=== PATIENT | male | born 1960 | race Caucasian/White ===

== ENCOUNTER 2017-02-19 17:15 | Inpatient (IN) | payer OTHER ==
[~2017-02-19] VITALS: Ht 172.7 cm; Wt 90.7 kg
[2017-02-19] MEDS ORDERED: TRAZODONE PO (17:26)
[2017-02-19] MEDS ORDERED: RISPERDAL PO (17:26)
[2017-02-19] MEDS ORDERED: ABILIFY PO (17:26)
--- NOTE | 2017-02-19 17:27 | NUR ---
Received ALOX4 with pt stating that he does smoke and street drugs but hasn't had any for a few days. Pt is noted to have clara. LE ankle edema and blisters on both feet with very large blister noted on his lt. foot great toe medial aspect of foot. Pt is also noted to have abd distension as well, and states that he has an ingulnal hernia.
[2017-02-19 17:52] LABS: BASOPHILS # (AUTO) 0.1 K/uL (0.0-8.0); BASOPHILS % (AUTO) 0.9 % (0.0-2.0); EOSINOPHILS # (AUTO) 0.1 K/uL (0.0-0.7); HEMATOCRIT 40.3 % (40-50); HEMOGLOBIN 13.5 G/DL (14.0-18.0); LYMPHOCYTES # (AUTO) 1.1 K/UL (0.8-4.8); LYMPHOCYTES % (AUTO) 19.3 % (20.5-51.5); MEAN CORPUSCULAR HEMOGLOBIN 33.9 UUG (27.0-31.0); MEAN CORPUSCULAR HGB CONC 33 g/dL (32.0-37.0); MEAN CORPUSCULAR VOLUME 101.4 FL (82.0-92.0); MONOCYTES # (AUTO) 0.3 K/UL (0.1-1.30); MONOCYTES % (AUTO) 6.2 % (0.0-11.0); NEUTROPHILS % (AUTO) 71.6 % (38.5-71.5); PLATELET COUNT (AUTO) 120 K/UL (150-450); RED BLOOD CELL COUNT(AUTO) 3.97 MIL/UL (4.7-6.1); WHITE BLOOD COUNT (AUTO) 5.6 K/UL (4.0-11.2)
[2017-02-19 18:06] LABS: ETHANOL < 3 MG/DL (0-0)
[2017-02-19 18:10] LABS: CARBON DIOXIDE 25 mmol/L (21-32); CHLORIDE 106 mmol/L (98-107); CREATININE 0.8 mg/dL (0.6-1.3); GLUCOSE 118 mg/dL (74-106); POTASSIUM 3.6 mmol/L (3.5-5.1); UREA NITROGEN, BLOOD 16 mg/dL (7-18)
[2017-02-19 18:14] LABS: ACETAMINOPHEN < 2.0 ug/mL (10-30); ALANINE AMINOTRANSFERASE 88 U/L (16-63); ALKALINE PHOSPHATASE 133 U/L (50-136); ASPARTATE AMINOTRANSFERASE 86 U/L (15-37); BILIRUBIN,DIRECT 0.8 mg/dL (0.0-0.2); BILIRUBIN,TOTAL 1.9 mg/dL (0.2-1.0); TOTAL PROTEIN, SERUM 6.8 g/dL (6.4-8.2)
--- NOTE | 2017-02-19 19:04 | NUR ---
Pt given food to eat had meal tray and sandwich as well now c/o diarrhea.
[2017-02-19 19:22] LABS: *BLOOD, URINE NEGATIVE (NEGATIVE); *COLOR,URINE AMBER (YELLOW); *KETONES,URINE 1+ (NEGATIVE); *PROTEIN,URINE TRACE (NEGATIVE); LEUKOCYTE ESTERASE ,URINE NEGATIVE (NEGATIVE); NITRITE, URINE NEGATIVE (NEGATIVE); UGLUCOSE NEGATIVE (NEGATIVE)
[2017-02-19 19:39] LABS: *BILIRUBIN,URIN 2+ (NEGATIVE)
[2017-02-19 19:40] LABS: *CLARITY,URINE SLIGHTLY HAZY (CLEAR)
[2017-02-19 19:43] LABS: *AMPHETAMINE, URINE NEGATIVE (NEGATIVE); *BARBITURATE, URINE NEGATIVE (NEGATIVE); *CANNABINOID, URINE POSITIVE (NEGATIVE); *COCCAINE, URINE NEGATIVE (NEGATIVE); *OPIATE, URINE NEGATIVE (NEGATIVE); *PHENCYCLIDINE SCREEN,URINE NEGATIVE (NEGATIVE)
[2017-02-19 19:49] LABS: MUCUS,URINE MANY /LPF (0-FEW); SQUAMOUS EPITHELIAL CELL,UR FEW /HPF (NONE SEEN)
--- NOTE | 2017-02-19 19:58 | NUR ---
Pt. admitted to TELE, under care of Dr. Wells Belongs List completed
[2017-02-19 20:30] VITALS: BP 130/68
--- NOTE | 2017-02-19 20:30 | NUR ---
PT RECEIVED FROM ED, VIA [employer]. A/OX3. ORIENTED TO ROOM. ABLE TO MAKE NEEDS KNOWN. V/S STABLE. IN NO ACUTE DISTRESS. PT C/O OF GENERALIZED PAIN AND FOOT PAIN 12/28. WILL ADMIN PAIN MEDICATION ORDERED. 85 SINUS ON THE TELE MONITOR. ON RA, TOLERATING WELL. SAFETY MEASURES IMPLEMENTED. CALL LIGHT WITHIN REACH.
[2017-02-19] MEDS ORDERED: ALBUTEROL SULFATE 2.5 MG/3 ML NEBU NEB PRN (23:30)
[2017-02-19] MEDS ORDERED: ONDANSETRON 4 MG/2 ML VIAL IV PRN (23:30)
[2017-02-19] MEDS ORDERED: ENOXAPARIN SODIUM 40 MG/0.4 ML DISP.SYRIN SQ SCH (23:30)
[2017-02-19] MEDS ORDERED: MAGNESIUM HYDROXIDE 30 ML LIQUID UDC PO PRN (23:30)
[2017-02-19 23:50] VITALS: BP 134/60
[2017-02-19] MEDS ORDERED: ENOXAPARIN SODIUM 40 MG/0.4 ML DISP.SYRIN SQ ONE (23:54)
[2017-02-20] MEDS: HYDROMORPHONE 1 MG/1 ML DISP.SYRIN IV PRN ×3 (00:02→19:58)
[2017-02-20] MEDS: ZOLPIDEM 5 MG TABLET PO PRN ×2 (00:10→21:29)
[2017-02-20] MEDS ORDERED: HYDROMORPHONE 1 MG/1 ML DISP.SYRIN ONE ×2 (00:15→05:40)
[2017-02-20] MEDS ORDERED: ZOLPIDEM 5 MG TABLET ONE (00:24)
[2017-02-20] MEDS: LORAZEPAM 2 MG/1 ML VIAL IV PRN (02:54)
[2017-02-20] MEDS ORDERED: LORAZEPAM 2 MG/1 ML VIAL ONE (03:05)
[2017-02-20 04:50] VITALS: BP 101/55
[2017-02-20] MEDS ORDERED: PIPERACILLIN SODIUM/TAZO 3.375 GM VIAL ONE (05:09)
[2017-02-20] MEDS: PIPERACILLIN/TAZOBACTAM/D5W 3.375 G in PREMIXED 1 EACH IV SCH ×3 (05:33→22:18)
[2017-02-20] MEDS: PANTOPRAZOLE SODIUM 40 MG TABLET.DR PO SCH (06:14)
--- NOTE | 2017-02-20 06:15 | NUR ---
NON-ADMIN PROTONIX. PT IS A NEW ADMIT.
[2017-02-20 06:43] LABS: THYROID STIMULATING HORMONE 12.23 mIU/mL (0.358-3.740)
--- NOTE | 2017-02-20 06:50 | NUR ---
END OF SHIFT NOTES. PT SLEPT WELL THROUGHOUT SHIFT. IN STABLE CONDITION. PAIN MANAGED. PT C/O BEING UNABLE TO SETTLE DOWN AND FEELS RESTLESS. ATIVAN ADMIN ORDERED. PT REQUEST FOR PSYCH MEDS, STATES HE HEARS VOICES. WILL ENDORSE TO DAYSHIFT NURSE. IV ABX INFUSED. ALL NEEDS ATTENDED. SAFETY MAINTAINED. CALL LIGHT WITHIN REACH.
[2017-02-20 06:53] LABS: BASOPHILS % (AUTO) 0.7 % (0.0-2.0); EOSINOPHILS # (AUTO) 0.3 K/uL (0.0-0.7); HEMOGLOBIN 11.4 g/dL (12.5-16.3); LYMPHOCYTES # (AUTO) 1.9 K/uL (20.0-40.0); LYMPHOCYTES % (AUTO) 35.1 % (20.5-51.5); MEAN CORPUSCULAR HEMOGLOBIN 35.6 uug (23.8-33.4); MEAN CORPUSCULAR HGB CONC 35 g/dL (32.5-36.3); MEAN CORPUSCULAR VOLUME 102.5 fL (73.0-96.2); MONOCYTES # (AUTO) 0.6 K/uL (2.0-10.0); NEUTROPHILS # (AUTO) 2.5 K/uL (1.8-8.9); NEUTROPHILS % (AUTO) 46.2 % (38.5-71.5); PLATELET COUNT (AUTO) 111 K/uL (152-348); RED BLOOD CELL COUNT(AUTO) 3.22 MIL/uL (4.06-5.63); WHITE BLOOD COUNT (AUTO) 5.4 K/uL (3.6-10.2)
[2017-02-20 07:02] LABS: BILIRUBIN,TOTAL 0.9 mg/dL (0.2-1.0); CREATININE 0.8 mg/dL (0.6-1.3); MAGNESIUM 1.7 mg/dL (1.8-2.4); PHOSPHOROUS 3.9 mg/dL (2.5-4.9); POTASSIUM 3.8 mmol/L (3.5-5.1); TOTAL PROTEIN, SERUM 5.5 g/dL (6.4-8.2)
--- NOTE | 2017-02-20 07:30 | NUR ---
Received report from night shift supervisor nurse, patient in bed awake, no evidence of distress noted at this time. Bed in low position, side rails up x2, bed alarm on.
[2017-02-20] MEDS: VANCOMYCIN IV 1,250 MG in IV DEXTROSE 5% 500 ML IV SCH ×2 (09:00→19:11)
[2017-02-20] MEDS ORDERED: MAGNESIUM SULFATE/D5W 100 ML IV SCH ×2 (10:00→13:30)
[2017-02-20 10:43] VITALS: BP 102/58
--- NOTE | 2017-02-20 11:12 | NUR ---
Clinical Pharmacy Note: Vancomycin Pharmacy to Dose Subjective: To start vancomycin in this 56 y/o gentleman for indication of "documented infection" Objective: height 172 cm weight 90 kg BMI 30.4 BUN 18 Scr 0.8 Wbc 5.4 temp 98.4 Assessment/Plan Will start vancomycin 1250mg Q10hr for estimated trough of 14.94, first dose was given this am at 0900. Trough ordered before 4th scheduled dose ( due tomorrow at 1430). Will check trough at that time and adjust as needed. Will follow renal function as well and dose per level if to become unstable. Will follow
--- NOTE | 2017-02-20 11:30 | NUR ---
Patient became agitated and wants to go out for a cigarette. Patient was informed that this is a non-smoking hospital and that smoking is prohibited.
[2017-02-20 11:45] VITALS: BP 102/58
[2017-02-20] MEDS ORDERED: ASPIRIN EC 81 MG TABLET.DR PO SCH (12:15)
--- NOTE | 2017-02-20 12:24 | NUR ---
WOUND CARE CONSULT: PT PRESENTS WITH MULTIPLE BLISTERS ON FEET. PT HAS 3 TO 4+ EDEMA TO FEET WITH OPEN BLISTER ON LEFT ANTERIOR ANKLE, HUGE BLACK BLISTER ON LEFT MEDIAL FOOT AND DRY HEALED AREAS WITH CALLUSES TO FEET. PT STATES HE WALKED LONG DISTANCES IN HIS SOCKS PRIOR TO ADMISSION. RED RASH NOTED TO GROIN, PERINEAL AREAS. RECOMMENDATIONS MADE FOR RASH AND OPEN BLISTER. DISCUSSED WITH NURSING STAFF. RECOMMEND DPM CONSULT. WILL SEE PRN. IN AGREEMENT WITH PLAN OF CARE.
[2017-02-20] MEDS ORDERED: Z GUARD REMEDY PASTE 57 GM TUBE TOP PRN (12:30)
[2017-02-20] MEDS ORDERED: CLOTRIMAZOLE 1% CREAM 30 GM TUBE TOP SCH (12:30)
[2017-02-20] MEDS: NYSTATIN POWDER 15 GM BOTTLE TOP SCH ×2 (12:45→20:01)
[2017-02-20] MEDS: MULTIVITAMINS,THERAPEUTIC TABLET PO SCH (13:27)
[2017-02-20] MEDS: METOPROLOL TARTRATE 25 MG TABLET PO SCH ×2 (13:27→20:02)
[2017-02-20] MEDS: THIAMINE HCL 100 MG TABLET PO SCH (13:27)
[2017-02-20] MEDS: FOLIC ACID 1 MG TABLET PO SCH (13:27)
[2017-02-20 15:37] VITALS: BP 104/62
--- NOTE | 2017-02-20 18:30 | NUR ---
Patient has been cooperative with treatment, patient had one episode of loose bowel that he could not control and make to the restroom. No evidence of pain, SOB or distress at this time. Patient is in bed, bed in low position, side rails up x2.
--- NOTE | 2017-02-20 19:30 | NUR ---
Received patient laying comfortably in bed. No acute distress noted. A&O x4. Patient c/o pain 8/10 on the right foot. Will review meds, will give meds as ordered. IV access on the right fore arm # 20 patent and intact. IV Abx infusing at the moment. Noted redness in the groin area noted. Blisters on bilateral feet noted. 3+ - 4+ pitting edema noted. Open blister on the left ant. ankle noted. Huge black blister on the Left medial foot and dry healed areas with callus to feet noted. Safety initiated. Call light within reach. Patient was instructed to use the call light when in need of assistance. Verbalized understanding. Will continue to monitor.
[2017-02-20 20:00] VITALS: BP 118/65
[2017-02-20] MEDS: DOCUSATE SODIUM 250 MG CAPSULE PO SCH (20:02)
[2017-02-20] MEDS: ENOXAPARIN SODIUM 40 MG/0.4 ML DISP.SYRIN SQ SCH ×2 (20:04→20:55)
--- NOTE | 2017-02-20 20:56 | NUR ---
Held Lovenox because platelet is low 111. Will continue to monitor.
[2017-02-20] MEDS: ACETAMINOPHEN 325 MG TABLET PO PRN (21:31)
[2017-02-21] MEDS: VANCOMYCIN IV 1,250 MG in IV DEXTROSE 5% 500 ML IV SCH ×2 (04:35→15:41)
[2017-02-21 05:57] VITALS: BP 101/47
[2017-02-21] MEDS: LEVOTHYROXINE SODIUM 25 MCG TABLET PO SCH (06:05)
[2017-02-21] MEDS: PIPERACILLIN/TAZOBACTAM/D5W 3.375 G in PREMIXED 1 EACH IV SCH ×3 (06:05→23:54)
[2017-02-21] MEDS: PANTOPRAZOLE SODIUM 40 MG TABLET.DR PO SCH (06:05)
--- NOTE | 2017-02-21 06:13 | NUR ---
Patient slept on and off t/o shift. No acute Distress noted. C/O back pain 11/27. Meds given, stated relief. Patient sating well in room air. Vital Signs stable. IV Cite on the right FA patent and intact. Blisters on bilateral legs open to air and kept clean and dry. All meds given as ordered. All needs met. Safety and comfort measures maintained t/o shift.
[2017-02-21 06:47] LABS: BASOPHILS % (AUTO) 0.5 % (0.0-2.0); EOSINOPHILS # (AUTO) 0.4 K/uL (0.0-0.7); HEMATOCRIT 33.5 % (40-50); HEMOGLOBIN 11.6 G/DL (14.0-18.0); LYMPHOCYTES # (AUTO) 1.4 K/UL (0.8-4.8); LYMPHOCYTES % (AUTO) 29.8 % (20.5-51.5); MEAN CORPUSCULAR HEMOGLOBIN 35.6 UUG (27.0-31.0); MEAN CORPUSCULAR HGB CONC 35 g/dL (32.0-37.0); MEAN CORPUSCULAR VOLUME 103.3 FL (82.0-92.0); MONOCYTES # (AUTO) 0.6 K/UL (0.1-1.30); MONOCYTES % (AUTO) 12.3 % (0.0-11.0); NEUTROPHILS # (AUTO) 2.2 K/UL (1.8-8.9); NEUTROPHILS % (AUTO) 48.4 % (38.5-71.5); PLATELET COUNT (AUTO) 100 K/UL (150-450); RED BLOOD CELL COUNT(AUTO) 3.24 MIL/UL (4.7-6.1); WHITE BLOOD COUNT (AUTO) 4.6 K/UL (4.0-11.2)
[2017-02-21 06:53] LABS: CREATININE 0.9 mg/dL (0.6-1.3); MAGNESIUM 1.7 mg/dL (1.8-2.4); PHOSPHOROUS 3.5 mg/dL (2.5-4.9); POTASSIUM 4.1 mmol/L (3.5-5.1); TOTAL PROTEIN, SERUM 5.4 g/dL (6.4-8.2)
--- NOTE | 2017-02-21 07:30 | NUR ---
RECEIVED REPORT FROM CASUALTY INSURANCE CLAIM ADJUSTER NURSE, PATIENT IN BED AWAKE COMPLAINING OF PAIN. BED IN LOW POSITION, SIDE RAILS UP X2.
[2017-02-21] MEDS: HYDROCODONE/APAP 5-325MG TABLET PO PRN ×3 (07:36→20:02)
[2017-02-21] MEDS: NYSTATIN POWDER 15 GM BOTTLE TOP SCH ×2 (09:00→20:03)
[2017-02-21] MEDS: CLOTRIMAZOLE 1% CREAM 30 GM TUBE TOP SCH (09:00)
[2017-02-21] MEDS: METOPROLOL TARTRATE 25 MG TABLET PO SCH ×2 (09:00→20:02)
[2017-02-21] MEDS: FOLIC ACID 1 MG TABLET PO SCH (10:14)
[2017-02-21] MEDS: MULTIVITAMINS,THERAPEUTIC TABLET PO SCH (10:14)
[2017-02-21] MEDS: THIAMINE HCL 100 MG TABLET PO SCH (10:14)
[2017-02-21] MEDS ORDERED: MAGNESIUM SULFATE/D5W 100 ML IV SCH (10:15)
[2017-02-21] MEDS: NICOTINE 14 MG/24HR PATCH TD SCH (11:34)
[2017-02-21 11:41] VITALS: BP 108/51
[2017-02-21] MEDS: CHOLECALCIFEROL 1,000 UNIT TABLET PO SCH (13:40)
--- NOTE | 2017-02-21 15:14 | NUR ---
Clinical Pharmacy Note: Vancomycin Pharmacy to Dose Subjective: To continue vancomycin in this 56 y/o gentleman for RLL pna Objective: height 172 cm weight 90 kg BMI 30.4 BUN 13 Scr 0.9 Wbc 4.6 temp 98.7 vanco trough level: 8.8 Assessment/Plan Since vanco trough level is sub-therapeutic, will change dose from vancomycin 1250mg Q10hr to vancomycin 1250mg IVPB q8h for estimated trough of 15, first dose is due today at 1600. Trough ordered before 4th scheduled dose ( not yet ordered). Will check trough at that time and adjust as needed. Will follow renal function as well and dose per level if to become unstable. Will follow
[2017-02-21 15:16] VITALS: BP 113/68
[2017-02-21] MEDS ORDERED: VANCOMYCIN IV 1,500 MG in IV DEXTROSE 5% 500 ML IV SCH (16:00)
--- NOTE | 2017-02-21 18:10 | NUR ---
CONTACTED DENNY BECAUSE PATIENTS ABDOMEN IS SWOLLEN, FEET HAVE PITTING EDEMA AND SCROTUM IS ENLARGED AND FIRM. MEDICATIONS AND LAB'S ORDERED.
--- NOTE | 2017-02-21 18:34 | NUR ---
ALL NEEDS MET, BED IN LOW POSITION, SIDE RAILS UP X2.
[2017-02-21] MEDS: SPIRONOLACTONE 100 MG TABLET PO SCH (18:44)
--- NOTE | 2017-02-21 19:30 | NUR ---
Received patient laying comfortably in bed. No acute distress noted. A&Ox4. On room air. IV Access on the Left AC patent and intact. Abdominal distended. Noted scrotal redness and slightly enlarged. Noted multiple kirlex dressings on bilateral legs due to open blisters. Patient uses a urinal to urinate. BM today. Noted edema on bilateral ankles. Safety initiated. Call light within reach. Will continue to monitor.
[2017-02-21] MEDS: LACTOBACILLUS RHAMNOSUS GG 1 EACH CAPSULE PO SCH (20:01)
[2017-02-21] MEDS: DOCUSATE SODIUM 250 MG CAPSULE PO SCH (20:02)
[2017-02-21] MEDS: ENOXAPARIN SODIUM 40 MG/0.4 ML DISP.SYRIN SQ SCH (20:04)
--- NOTE | 2017-02-21 20:05 | NUR ---
LOW LEVELS OF PLATELETS. HELD LOVENOX. WILL CONTINUE TO MONITOR.
[2017-02-21 20:17] VITALS: BP 114/55
[2017-02-22] MEDS: ACETAMINOPHEN 325 MG TABLET PO PRN (01:12)
[2017-02-22] MEDS: ZOLPIDEM 5 MG TABLET PO PRN ×2 (01:12→21:53)
[2017-02-22] MEDS: VANCOMYCIN IV 1,250 MG in IV DEXTROSE 5% 500 ML IV SCH ×2 (01:21→08:43)
--- NOTE | 2017-02-22 05:49 | NUR ---
Patient slept intermittently t/o shift. No acute distress noted. No changes t/o shift. Vital signs stable. Patient says he hears voices and that is what preventing him from sleeping. pending Psych eval. Safety and comfort measures maintained t/o shift. BMx2. Urinating ok. Very good appetite, asks for sandwich, crackers and juice t/o shift. All meds given as ordered. All needs met.
[2017-02-22] MEDS: LEVOTHYROXINE SODIUM 25 MCG TABLET PO SCH (06:23)
[2017-02-22] MEDS: HYDROCODONE/APAP 5-325MG TABLET PO PRN ×2 (06:23→14:23)
[2017-02-22] MEDS: PANTOPRAZOLE SODIUM 40 MG TABLET.DR PO SCH (06:23)
[2017-02-22] MEDS: PIPERACILLIN/TAZOBACTAM/D5W 3.375 G in PREMIXED 1 EACH IV SCH (06:23)
[2017-02-22 07:06] VITALS: BP 115/62
[2017-02-22 08:29] LABS: BILIRUBIN,TOTAL 0.8 mg/dL (0.2-1.0); CREATININE 0.8 mg/dL (0.6-1.3); MAGNESIUM 1.8 mg/dL (1.8-2.4); PHOSPHOROUS 3.1 mg/dL (2.5-4.9); POTASSIUM 4.3 mmol/L (3.5-5.1); TOTAL PROTEIN, SERUM 5.9 g/dL (6.4-8.2)
[2017-02-22] MEDS: NICOTINE 14 MG/24HR PATCH TD SCH (08:38)
[2017-02-22] MEDS: MULTIVITAMINS,THERAPEUTIC TABLET PO SCH (08:40)
[2017-02-22] MEDS: THIAMINE HCL 100 MG TABLET PO SCH (08:40)
[2017-02-22] MEDS: SPIRONOLACTONE 100 MG TABLET PO SCH (08:40)
[2017-02-22] MEDS: LACTOBACILLUS RHAMNOSUS GG 1 EACH CAPSULE PO SCH ×2 (08:40→21:34)
[2017-02-22] MEDS: CHOLECALCIFEROL 1,000 UNIT TABLET PO SCH (08:40)
[2017-02-22] MEDS: FOLIC ACID 1 MG TABLET PO SCH (08:40)
[2017-02-22 08:41] LABS: BASOPHILS % (AUTO) 0.5 % (0.0-2.0); EOSINOPHILS # (AUTO) 0.2 K/uL (0.0-0.7); EOSINOPHILS % (AUTO) 6.2 % (0.0-7.0); HEMATOCRIT 34.4 % (36.7-47.1); HEMOGLOBIN 11.8 g/dL (12.5-16.3); LYMPHOCYTES # (AUTO) 0.8 K/uL (20.0-40.0); LYMPHOCYTES % (AUTO) 20.1 % (20.5-51.5); MEAN CORPUSCULAR HEMOGLOBIN 35.3 uug (23.8-33.4); MEAN CORPUSCULAR HGB CONC 34 g/dL (32.5-36.3); MEAN CORPUSCULAR VOLUME 102.5 fL (73.0-96.2); MONOCYTES # (AUTO) 0.5 K/uL (2.0-10.0); MONOCYTES % (AUTO) 13.6 % (0.0-11.0); NEUTROPHILS # (AUTO) 2.4 K/uL (1.8-8.9); NEUTROPHILS % (AUTO) 59.6 % (38.5-71.5); PLATELET COUNT (AUTO) 88 K/uL (152-348); RED BLOOD CELL COUNT(AUTO) 3.35 MIL/uL (4.06-5.63); WHITE BLOOD COUNT (AUTO) 3.9 K/uL (3.6-10.2)
[2017-02-22] MEDS: METOPROLOL TARTRATE 25 MG TABLET PO SCH ×2 (09:26→21:35)
[2017-02-22] MEDS: CLOTRIMAZOLE 1% CREAM 30 GM TUBE TOP SCH (09:27)
[2017-02-22] MEDS: NYSTATIN POWDER 15 GM BOTTLE TOP SCH ×2 (09:27→21:57)
--- NOTE | 2017-02-22 10:20 | NUR ---
Pt report received near bedside. Board updated. Pt assessed, no c/o pain or SOB. Wound care provided and pictures taken to update Pt folder. Pt compliant with PO and IV medications. V/S and labs WNL. Pt seen my SCHOOL CHILDCARE ATTENDANT. Pt NPO r/t awaiting abd u/s. Call light within reach. Will continue to monitor.
[2017-02-22] MEDS: FUROSEMIDE 20 MG/2 ML VIAL IV SCH ×2 (10:45→23:20)
[2017-02-22 11:59] VITALS: BP 127/74
[2017-02-22 12:01] LABS: BASOPHILS % (MANUAL) 1 % (0-2); EOSINOPHILS % (MANUAL) 10 % (0-8); LYMPHOCYTES % (MANUAL) 23 % (20-40); MONOCYTES % (MANUAL) 6 % (2-10); NEUTROPHILS % (MANUAL) 60 % (42-75)
[2017-02-22] MEDS: RIFAXIMIN 550 MG TABLET PO SCH ×2 (14:10→21:34)
[2017-02-22] MEDS: AZITHROMYCIN IV 500 MG in IV DEXTROSE 5% 250 ML IV SCH (14:10)
[2017-02-22 15:43] VITALS: BP 132/77
--- NOTE | 2017-02-22 19:30 | NUR ---
RECEIVED SHIFT REPORT FROM PREVIOUS SHIFT NURSE. PATIENT IS A/OX3, STABLE CONDITION, NO SIGNS/SYMPTOMS OF DISTRESS. PATIENT REQUESTED FOR BILATERAL FEET TO BE REWRAPPED, WILL CARE FOR. PAIN COMPLAINS OF PAIN 5/10 ON PAIN SCALE AT BILATERAL FEET. PATIENT VERBALIZES THAT PAIN IS TOLERABLE AND PAIN MEDICATION IS NOT NEEDED. BED IS IN LOCKED/LOW POSITION WITH SIDE RAILS UP X2, CALL LIGHT WITHIN REACH. SAFETY AND COMFORT WILL BE PROVIDED THROUGHOUT SHIFT.
[2017-02-22 20:00] VITALS: BP 141/65
[2017-02-22] MEDS ORDERED: risperiDONE 0.5 MG TABLET PO SCH (21:00)
[2017-02-22] MEDS: DOCUSATE SODIUM 250 MG CAPSULE PO SCH (21:39)
[2017-02-22] MEDS ORDERED: risperiDONE 2 MG TABLET ONE (22:21)
[2017-02-23] MEDS: LEVOTHYROXINE SODIUM 25 MCG TABLET PO SCH (05:56)
[2017-02-23] MEDS: PANTOPRAZOLE SODIUM 40 MG TABLET.DR PO SCH (05:57)
[2017-02-23 06:25] LABS: BASOPHILS % (AUTO) 0.4 % (0.0-2.0); EOSINOPHILS # (AUTO) 0.2 K/uL (0.0-0.7); EOSINOPHILS % (AUTO) 4.8 % (0.0-7.0); HEMATOCRIT 36.6 % (40-50); HEMOGLOBIN 12.5 G/DL (14.0-18.0); LYMPHOCYTES # (AUTO) 1.1 K/UL (0.8-4.8); LYMPHOCYTES % (AUTO) 31.4 % (20.5-51.5); MEAN CORPUSCULAR HEMOGLOBIN 35.2 UUG (27.0-31.0); MEAN CORPUSCULAR HGB CONC 34 g/dL (32.0-37.0); MEAN CORPUSCULAR VOLUME 102.8 FL (82.0-92.0); MONOCYTES # (AUTO) 0.4 K/UL (0.1-1.30); MONOCYTES % (AUTO) 11.1 % (0.0-11.0); NEUTROPHILS % (AUTO) 52.3 % (38.5-71.5); PLATELET COUNT (AUTO) 88 K/UL (150-450); RED BLOOD CELL COUNT(AUTO) 3.56 MIL/UL (4.7-6.1); WHITE BLOOD COUNT (AUTO) 3.7 K/UL (4.0-11.2)
--- NOTE | 2017-02-23 06:35 | NUR ---
PATIENT SLEPT INTERMITTENTLY THROUGH THE NIGHT. PATIENT IN STABLE CONDITION, NO S/S OF DISTRESS. AMBIEN WAS REQUESTED BY PATIENT EARLY ON SHIFT, WAS ADMINISTERED, AND APPEARED TO HAVE BEEN EFFECTIVE. BED IN LOCKED/LOW POSITION W/ SIDE RAILS UP X2, CALL LIGHT WITHIN REACH. COMFORT AND SAFETY WILL CONTINUE TO BE PROVIDED UNTIL SHIFT HAS COMPLETED.
[2017-02-23 06:46] VITALS: BP 125/65
[2017-02-23 06:51] LABS: BILIRUBIN,TOTAL 1.1 mg/dL (0.2-1.0); CREATININE 0.8 mg/dL (0.6-1.3); PHOSPHOROUS 3.8 mg/dL (2.5-4.9); POTASSIUM 4.4 mmol/L (3.5-5.1)
[2017-02-23 06:52] LABS: MAGNESIUM 1.8 mg/dL (1.8-2.4); TOTAL PROTEIN, SERUM 6.3 g/dL (6.4-8.2)
[2017-02-23] MEDS: FUROSEMIDE 20 MG/2 ML VIAL IV SCH ×2 (08:09→20:27)
[2017-02-23] MEDS: FOLIC ACID 1 MG TABLET PO SCH (08:11)
[2017-02-23] MEDS: THIAMINE HCL 100 MG TABLET PO SCH (08:11)
[2017-02-23] MEDS: BENZTROPINE MESYLATE 0.5 MG TABLET PO SCH ×2 (08:12→20:24)
[2017-02-23] MEDS: LACTOBACILLUS RHAMNOSUS GG 1 EACH CAPSULE PO SCH ×2 (08:12→20:23)
[2017-02-23] MEDS: risperiDONE 2 MG TABLET PO SCH ×2 (08:12→20:24)
[2017-02-23] MEDS: RIFAXIMIN 550 MG TABLET PO SCH ×2 (08:12→20:23)
[2017-02-23] MEDS: MULTIVITAMINS,THERAPEUTIC TABLET PO SCH (08:12)
[2017-02-23] MEDS: HYDROCODONE/APAP 5-325MG TABLET PO PRN ×2 (08:12→19:52)
[2017-02-23] MEDS: NICOTINE 14 MG/24HR PATCH TD SCH (08:13)
[2017-02-23] MEDS: METOPROLOL TARTRATE 25 MG TABLET PO SCH ×2 (08:13→20:24)
[2017-02-23] MEDS: CHOLECALCIFEROL 1,000 UNIT TABLET PO SCH (08:13)
[2017-02-23] MEDS: CLOTRIMAZOLE 1% CREAM 30 GM TUBE TOP SCH (08:14)
[2017-02-23] MEDS: NYSTATIN POWDER 15 GM BOTTLE TOP SCH ×2 (08:14→20:25)
--- NOTE | 2017-02-23 08:15 | NUR ---
Received patient awake alert x4. With patent LFA G20, flushed and secured. Not in any from of distress. With pain over back and lower extremities rated as 8/10. PRN [place] given
[2017-02-23 12:01] VITALS: BP 114/47
[2017-02-23] MEDS: AZITHROMYCIN IV 500 MG in IV DEXTROSE 5% 250 ML IV SCH (13:16)
[2017-02-23 15:32] VITALS: BP 112/58
--- NOTE | 2017-02-23 16:15 | NUR ---
Paracentesis ongoing at bedside. Patient tolerating well.
--- NOTE | 2017-02-23 16:53 | NUR ---
Paracentesis completed. Drained 6,000 ML total. Patient stable no dizziness, chest pains or SOB noted. With tolerable discomfort over site. No active bleeding from site noted. V/S BP- 104/71. HR- 72. Informed Grace Caparos/ [employer] and ordered culture for peritoneal drainage.
[2017-02-23 20:00] VITALS: BP 105/68
--- NOTE | 2017-02-23 20:00 | NUR ---
RECEIVED PATIENT AWAKE IN BED. C/O PAIN IN LOWER BACK AND BILATERAL FEET. PATIENT GIVEN NORCO 1 TAB PO PRN FOR PAIN. VSS. NO RESP. DISTRESS NOTED. CALL LIGHT IN REACH. ALL NEEDS ATTENDED. WILL CONTINUE TO MONITOR.
[2017-02-23] MEDS: TRAZODONE 100 MG TABLET PO SCH (20:24)
[2017-02-23] MEDS: DOCUSATE SODIUM 250 MG CAPSULE PO SCH (20:24)
[2017-02-24] MEDS: HYDROCODONE/APAP 5-325MG TABLET PO PRN ×3 (00:37→18:23)
[2017-02-24 05:17] VITALS: BP 112/56
[2017-02-24] MEDS: PANTOPRAZOLE SODIUM 40 MG TABLET.DR PO SCH (06:01)
[2017-02-24] MEDS: LEVOTHYROXINE SODIUM 25 MCG TABLET PO SCH (06:01)
--- NOTE | 2017-02-24 06:26 | NUR ---
PATIENT AWAKE IN BED. NO C/O PAIN. VSS. CALL LIGHT IN REACH. ALL NEEDS ATTENDED.
[2017-02-24 07:05] LABS: BILIRUBIN,TOTAL 0.8 mg/dL (0.2-1.0); CREATININE 0.9 mg/dL (0.6-1.3); MAGNESIUM 1.7 mg/dL (1.8-2.4); PHOSPHOROUS 4.2 mg/dL (2.5-4.9); POTASSIUM 4.4 mmol/L (3.5-5.1); TOTAL PROTEIN, SERUM 6.8 g/dL (6.4-8.2)
[2017-02-24 07:25] LABS: BASOPHILS % (AUTO) 0.5 % (0.0-2.0); EOSINOPHILS # (AUTO) 0.1 K/uL (0.0-0.7); EOSINOPHILS % (AUTO) 3.2 % (0.0-7.0); HEMATOCRIT 37.3 % (36.7-47.1); HEMOGLOBIN 12.8 g/dL (12.5-16.3); LYMPHOCYTES % (AUTO) 29.4 % (20.5-51.5); MEAN CORPUSCULAR HEMOGLOBIN 35.5 uug (23.8-33.4); MEAN CORPUSCULAR HGB CONC 34 g/dL (32.5-36.3); MEAN CORPUSCULAR VOLUME 103.6 fL (73.0-96.2); MONOCYTES # (AUTO) 0.4 K/uL (2.0-10.0); MONOCYTES % (AUTO) 12.7 % (0.0-11.0); NEUTROPHILS # (AUTO) 1.8 K/uL (1.8-8.9); NEUTROPHILS % (AUTO) 54.2 % (38.5-71.5); PLATELET COUNT (AUTO) 75 K/uL (152-348); WHITE BLOOD COUNT (AUTO) 3.3 K/uL (3.6-10.2)
--- NOTE | 2017-02-24 08:00 | NUR ---
Pt is in no acute distress. Discussed plan of care for today re: proper pain management, fall precaution. PT agreeable with plan of care. Pt denies any c/o pain. Pt ambulates around hallway with good balance. Call light is within reach.
[2017-02-24] MEDS: FUROSEMIDE 20 MG/2 ML VIAL IV SCH ×2 (08:04→20:11)
[2017-02-24] MEDS: MULTIVITAMINS,THERAPEUTIC TABLET PO SCH (08:05)
[2017-02-24] MEDS: RIFAXIMIN 550 MG TABLET PO SCH ×2 (08:05→20:09)
[2017-02-24] MEDS: FOLIC ACID 1 MG TABLET PO SCH (08:05)
[2017-02-24] MEDS: risperiDONE 2 MG TABLET PO SCH ×2 (08:05→20:10)
[2017-02-24] MEDS: LACTOBACILLUS RHAMNOSUS GG 1 EACH CAPSULE PO SCH ×2 (08:05→20:10)
[2017-02-24] MEDS: THIAMINE HCL 100 MG TABLET PO SCH (08:05)
[2017-02-24] MEDS: BENZTROPINE MESYLATE 0.5 MG TABLET PO SCH ×2 (08:07→20:10)
[2017-02-24] MEDS: METOPROLOL TARTRATE 25 MG TABLET PO SCH ×2 (08:08→20:11)
[2017-02-24] MEDS: CHOLECALCIFEROL 1,000 UNIT TABLET PO SCH (08:09)
[2017-02-24] MEDS: NICOTINE 14 MG/24HR PATCH TD SCH (08:09)
[2017-02-24] MEDS: NYSTATIN POWDER 15 GM BOTTLE TOP SCH ×2 (08:10→20:14)
[2017-02-24] MEDS: CLOTRIMAZOLE 1% CREAM 30 GM TUBE TOP SCH (08:10)
[2017-02-24 12:09] VITALS: BP 106/58
[2017-02-24] MEDS: AZITHROMYCIN IV 500 MG in IV DEXTROSE 5% 250 ML IV SCH (13:35)
[2017-02-24] MEDS: MAGNESIUM SULFATE/D5W 100 ML IV SCH ×2 (15:17→16:32)
[2017-02-24 15:34] VITALS: BP 127/69
--- NOTE | 2017-02-24 17:41 | NUR ---
Plan of care effective. No fall noted this shift. Call light is within reach.
[2017-02-24 20:00] VITALS: BP 118/73
[2017-02-24] MEDS: LORAZEPAM 2 MG/1 ML VIAL IV PRN (20:06)
[2017-02-24] MEDS: DOCUSATE SODIUM 250 MG CAPSULE PO SCH (20:13)
[2017-02-24] MEDS: TRAZODONE 100 MG TABLET PO SCH (21:00)
--- NOTE | 2017-02-24 21:00 | NUR ---
PATIENT WALKING AROUND THE [place] WANTED TO SMOKE DOWNSTAIRS. REMINDED ABOUT NO SMOKING POLICY, WAS ABLE TO LISTEN AND IS COOPERATIVE. ADMITS HEARING VOICES BUT DENIES SUICIDAL IDEATION. GIVEN PRN ATIVAN FOR AGITATION. VITAL SIGNS ARE STABLE. NOTED BLISTERS ON LEFT FOOT WITH BILATERAL LEG EDEMA AND SWOLLEN SCROTUM. ASCITES PRESENT BUT NO RESPIRATORY DISTRESS NOTED. NICOTINE PATCH OVER LEFT ARM. CALL LIGHT WITHIN REACH.
[2017-02-25 05:00] VITALS: BP 119/65
[2017-02-25] MEDS: LEVOTHYROXINE SODIUM 25 MCG TABLET PO SCH (06:40)
[2017-02-25] MEDS: PANTOPRAZOLE SODIUM 40 MG TABLET.DR PO SCH (06:40)
--- NOTE | 2017-02-25 06:40 | NUR ---
slept good thru the night. held trazodone dose last night. otherwise patient has no complaint, not in distress. vital signs are stable.call light within reach. all needs attended.
[2017-02-25 06:43] LABS: CREATININE 0.8 mg/dL (0.6-1.3); MAGNESIUM 1.8 mg/dL (1.8-2.4); POTASSIUM 4.1 mmol/L (3.5-5.1)
--- NOTE | 2017-02-25 07:15 | NUR ---
RECEIVED REPORT FROM MARKETING ADMINISTRATOR NURSE. PATIENT IN BED AWAKE, NO EVIDENCE OF DISTRESS NOTED, BED IN LOW POSITION, SIDE RAILS UP X2.
[2017-02-25] MEDS: FUROSEMIDE 20 MG/2 ML VIAL IV SCH (08:27)
[2017-02-25] MEDS: risperiDONE 2 MG TABLET PO SCH (08:27)
[2017-02-25] MEDS: LACTOBACILLUS RHAMNOSUS GG 1 EACH CAPSULE PO SCH (08:27)
[2017-02-25] MEDS: RIFAXIMIN 550 MG TABLET PO SCH (08:27)
[2017-02-25] MEDS: CHOLECALCIFEROL 1,000 UNIT TABLET PO SCH (08:27)
[2017-02-25] MEDS: MULTIVITAMINS,THERAPEUTIC TABLET PO SCH (08:27)
[2017-02-25] MEDS: BENZTROPINE MESYLATE 0.5 MG TABLET PO SCH (08:28)
[2017-02-25] MEDS: NICOTINE 14 MG/24HR PATCH TD SCH (08:28)
[2017-02-25] MEDS: FOLIC ACID 1 MG TABLET PO SCH (08:28)
[2017-02-25] MEDS: THIAMINE HCL 100 MG TABLET PO SCH (08:28)
[2017-02-25] MEDS: METOPROLOL TARTRATE 25 MG TABLET PO SCH (08:29)
[2017-02-25] MEDS: CLOTRIMAZOLE 1% CREAM 30 GM TUBE TOP SCH (08:32)
[2017-02-25] MEDS: NYSTATIN POWDER 15 GM BOTTLE TOP SCH (08:32)
[2017-02-25 11:15] VITALS: BP 95/45
[2017-02-25] MEDS: AZITHROMYCIN IV 500 MG in IV DEXTROSE 5% 250 ML IV SCH (13:59)
--- NOTE | 2017-02-25 15:00 | NUR ---
PATIENT WAS OFFERED SEVERAL OPTIONS FOR ASSISTANCE, AND PATIENT DECLINED.
[2017-02-25 15:09] VITALS: BP 115/58
--- NOTE | 2017-02-25 17:20 | NUR ---
PATIENTS IV WAS DISCONTINUED, ALL DISCHARGE INFORMATION WAS PROVIDED, PATIENT WAS PROVIDED A BUS TOKEN AND SHOES THE PATIENT DID NOT HAVE ANY. ALL PRESCRIPTIONS WERE CALLED IN TO [facility] ON [facility].
== END 2017-02-25 17:35 | disposition home or self-care (01) | DRG 177 ==
LOC: ER 17:15 → MED 19:59 → TELE 21:06 → MED 02-20 13:15
PROVIDERS: ADMIT Internal Medicine; ATTEND Internal Medicine
PROC: 0W9G3ZZ Drainage of Peritoneal Cavity, Percutaneous Approach (ICD-10-PCS; principal; 2017-02-23)
DX: J15.6 Pneumonia due to other Gram-negative bacteria (principal); E43 Unspecified severe protein-calorie malnutrition; D68.9 Coagulation defect, unspecified; D69.6 Thrombocytopenia, unspecified; J90 Pleural effusion, not elsewhere classified; I42.1 Obstructive hypertrophic cardiomyopathy; E83.42 Hypomagnesemia; L03.116 Cellulitis of left lower limb; L03.115 Cellulitis of right lower limb; E88.09 Other disorders of plasma-protein metabolism, not elsewhere classified; F25.9 Schizoaffective disorder, unspecified; K72.90 Hepatic failure, unspecified without coma; E83.51 Hypocalcemia; K70.31 Alcoholic cirrhosis of liver with ascites; D53.9 Nutritional anemia, unspecified; E03.9 Hypothyroidism, unspecified; F17.210 Nicotine dependence, cigarettes, uncomplicated; F41.9 Anxiety disorder, unspecified; Z59.0 Homelessness; Z87.01 Personal history of pneumonia (recurrent); Z91.5 Personal history of self-harm; R53.1 Weakness; K80.20 Calculus of gallbladder without cholecystitis without obstruction; D72.819 Decreased white blood cell count, unspecified; F10.10 Alcohol abuse, uncomplicated; Y90.0 Blood alcohol level of less than 20 mg/100 ml; S90.822A Blister (nonthermal), left foot, initial encounter; S90.821A Blister (nonthermal), right foot, initial encounter; X58.XXXA Exposure to other specified factors, initial encounter; Y93.9 Activity, unspecified; Y92.9 Unspecified place or not applicable; L30.9 Dermatitis, unspecified; Z86.19 Personal history of other infectious and parasitic diseases; R74.0 Nonspecific elevation of levels of transaminase and lactic acid dehydrogenase [LDH]; S90.32XA Contusion of left foot, initial encounter; F19.10 Other psychoactive substance abuse, uncomplicated; F32.9 Major depressive disorder, single episode, unspecified; I10 Essential (primary) hypertension; Z68.30 Body mass index [BMI] 30.0-30.9, adult
CPT/HCPCS: 36415; 70030-TC; 71010; 76700; 80307; 82306; 83550; 83605; 83735; 84100; 84443; 85025; 85730; 87040; 87070; 87086; 87205; 93005; 93307; A4663; G0480; G0480-TC; J0456; J1170; J1650; J1940; J2060; J2543; J3370; J3475; J7030; J7040; J7060

== ENCOUNTER 2018-07-04 17:30 | Inpatient (IN) | payer MEDICAID, OTHER ==
[~2018-07-04] VITALS: Ht 167.6 cm; Wt 85.7 kg
[~2018-07-04 17:30] MED LIST: ABILIFY PO; RISPERDAL PO; TRAZODONE PO
[2018-07-04] MEDS ORDERED: IV NORMAL SALINE 1000 ML BAG IV ONE (18:00)
--- NOTE | 2018-07-04 18:30 | NUR ---
PT IS IN ROOM #2B. DR BINGHAM EVALUATED THE PT.
[2018-07-04 18:39] LABS: *BLOOD, URINE NEGATIVE (NEGATIVE); *CLARITY,URINE SLIGHTLY CLOUDY (CLEAR); *COLOR,URINE DARK YELLOW (YELLOW); *KETONES,URINE TRACE (NEGATIVE); LEUKOCYTE ESTERASE ,URINE 1+ (NEGATIVE); NITRITE, URINE POSITIVE (NEGATIVE); PH,URINE 5.5 (5.0-8.0); UGLUCOSE NEGATIVE (NEGATIVE)
[2018-07-04 18:44] LABS: *BILIRUBIN,URIN 2+ (NEGATIVE); BASOPHILS % (AUTO) 0.5 % (0.0-2.0); EOSINOPHILS % (AUTO) 0.4 % (0.0-7.0); HEMATOCRIT 28.4 % (36.7-47.1); HEMOGLOBIN 9.7 g/dL (12.5-16.3); LYMPHOCYTES # (AUTO) 1.1 K/uL (20.0-40.0); LYMPHOCYTES % (AUTO) 17.9 % (20.5-51.5); MEAN CORPUSCULAR HEMOGLOBIN 32.2 uug (23.8-33.4); MEAN CORPUSCULAR HGB CONC 34 g/dL (32.5-36.3); MEAN CORPUSCULAR VOLUME 94.5 fL (73.0-96.2); MONOCYTES % (AUTO) 17.1 % (0.0-11.0); NEUTROPHILS # (AUTO) 3.9 K/uL (1.8-8.9); NEUTROPHILS % (AUTO) 64.1 % (38.5-71.5); PLATELET COUNT (AUTO) 85 K/uL (152-348); RED BLOOD CELL COUNT(AUTO) 3.01 MIL/uL (4.06-5.63); WHITE BLOOD COUNT (AUTO) 6.1 K/uL (3.6-10.2)
[2018-07-04] MEDS ORDERED: VANCOMYCIN IV 1,000 MG in IV DEXTROSE 5% 250 ML IV ONE (18:45)
[2018-07-04] MEDS ORDERED: PIPERACILLIN SODIUM/TAZOBACTAM 3.375 G in IV DEXTROSE 5% 50 ML IV ONE (18:45)
[2018-07-04 18:54] LABS: CARBON DIOXIDE 25 mmol/L (21-32); CHLORIDE 109 mmol/L (98-107); CREATININE 0.9 mg/dL (0.6-1.3); GLUCOSE 67 mg/dL (74-106); POTASSIUM 3.3 mmol/L (3.5-5.1); UREA NITROGEN, BLOOD 20 mg/dL (7-18)
[2018-07-04 18:56] LABS: BACTERIA,URINE MANY /HPF (NONE SEEN); RBC,URINE 0-3 /HPF (0-3); SQUAMOUS EPITHELIAL CELL,UR FEW /HPF (NONE SEEN); WBC,URINE 20-50 /HPF (0-3)
[2018-07-04 19:01] LABS: ETHANOL < 3 MG/DL (0-0)
[2018-07-04 19:02] LABS: *AMPHETAMINE, URINE POSITIVE (NEGATIVE); *BARBITURATE, URINE NEGATIVE (NEGATIVE); *CANNABINOID, URINE POSITIVE (NEGATIVE); *COCCAINE, URINE NEGATIVE (NEGATIVE); *OPIATE, URINE NEGATIVE (NEGATIVE); *PHENCYCLIDINE SCREEN,URINE NEGATIVE (NEGATIVE)
[2018-07-04 19:07] LABS: THYROID STIMULATING HORMONE 4.011 mIU/mL (0.358-3.740)
[2018-07-04 19:08] LABS: ALANINE AMINOTRANSFERASE 80 U/L (16-63); ALKALINE PHOSPHATASE 97 U/L (50-136); ASPARTATE AMINOTRANSFERASE 88 U/L (15-37); BAND % (MANUAL) 10 % (0-10); BILIRUBIN,DIRECT 0.9 mg/dL (0.0-0.2); BILIRUBIN,TOTAL 2.3 mg/dL (0.2-1.0); NEUTROPHILS % (MANUAL) 64 % (42-75); TOTAL PROTEIN, SERUM 5.7 g/dL (6.4-8.2)
[2018-07-04 19:09] LABS: LYMPHOCYTES % (MANUAL) 10 % (20-40); MONOCYTES % (MANUAL) 16 % (2-10)
[2018-07-04 19:11] LABS: ACETAMINOPHEN < 2.0 ug/mL (10-30)
[2018-07-04] MEDS ORDERED: THIAMINE HCL 200 MG/2 ML VIAL IV ONE (19:15)
[2018-07-04] MEDS ORDERED: FOLIC ACID 5 MG/ML VIAL IV ONE ×2 (19:15→19:55)
[2018-07-04] MEDS ORDERED: DEXTROSE 50% 50 ML DISP.SYRIN IV ONE (19:15)
[2018-07-04] MEDS ORDERED: IV D5W-0.45% NS 1000 ML BAG IV ONE (19:15)
--- NOTE | 2018-07-04 19:30 | NUR ---
Pt. back from CT, IV patent - no s/s infiltration/phlebitis, reconnected IV fluids - fluids infusing,
[2018-07-04] MEDS ORDERED: DEXTROSE 50% 50 ML DISP.SYRIN ONE (19:54)
[2018-07-04] MEDS ORDERED: THIAMINE HCL 200 MG/2 ML VIAL ONE (19:54)
[2018-07-04] MEDS ORDERED: PIPERACILLIN SODIUM/TAZO 3.375 GM VIAL ONE (19:54)
--- NOTE | 2018-07-04 20:21 | NUR ---
US tech. at bedside for scan
[2018-07-04] MEDS ORDERED: VANCOMYCIN IV 200 ML ONE (20:27)
[2018-07-04] MEDS ORDERED: LACTULOSE 20 G/30 ML LIQUID UDC PO ONE (21:15)
--- NOTE | 2018-07-04 21:21 | NUR ---
Rad. tech at bedside for xray, phleb. tech at bedside for blood draw,
[2018-07-04] MEDS ORDERED: LACTULOSE 20 G/30 ML LIQUID UDC ONE (21:35)
--- NOTE | 2018-07-04 21:43 | NUR ---
Gave report to Celena,
--- NOTE | 2018-07-04 22:26 | NUR ---
Pt. taken off unit via stretcher by RN and LIBRARIAN HEAD, IV abx. to be continued upon admission, TYLOR,
[2018-07-04] MEDS ORDERED: ACETAMINOPHEN 650 MG SUPP.RECT RC PRN (22:30)
[2018-07-04] MEDS ORDERED: DEXTROSE 50% 50 ML DISP.SYRIN IV PRN (22:30)
[2018-07-04] MEDS ORDERED: BLOOD SUGAR DIAGNOSTIC 1 EACH STRIP VI ONE (22:30)
[2018-07-04] MEDS ORDERED: LACTULOSE 20 G/30 ML LIQUID UDC PR ONE (22:30)
--- NOTE | 2018-07-04 22:45 | NUR ---
Received patient from ER via [employer]. Patient was placed in the bed. Oriented to his room. A/O to self only. Unable to comprehend my questions. Unable to give history because of mental status. Patient is mal odorous. Patient is in room air. Vitals were taken, stable. TELE SR at 85. Patient has multiple wounds in the upper and lower extremities. Sacral redness. Patient has 1 working IV on the Right AC because he pulled out the IV on the left FA. Holloway cath draining yellow and clear urine. Testicles are red and enlarged. Patient is currently trying to pull out the holloway. Safety initiated. Call light within reach. Will continue to monitor.
[2018-07-04 23:04] VITALS: BP 127/72
[2018-07-04] MEDS ORDERED: LORAZEPAM 2 MG/1 ML VIAL IV PRN (23:15)
--- NOTE | 2018-07-04 23:15 | NUR ---
Spoke to HCP, explained that the patient is pulling lines out. HCP ordered mittens and Ativan 1 mg IVP for restlessness and anxiousness. Will closely monitor.
[2018-07-04] MEDS: IV D5LR 1,000 ML IV PRN (23:37)
[2018-07-04] MEDS: LORAZEPAM 2 MG/1 ML VIAL IV PRN (23:43)
[2018-07-05 00:23] VITALS: BP 120/72
[2018-07-05 05:19] VITALS: BP 129/78
[2018-07-05] MEDS ORDERED: MEROPENEM 1 G VIAL IV ONE (05:43)
--- NOTE | 2018-07-05 05:45 | NUR ---
No changes t/o shift. Neuro checks every 15 mins because of mittens are in place. IV on the right ac patent and intact. TELE SR at 76. Vital signs stable. Wound care provided. Tolerated it ok. Patient maintained NPO status. Safety and comfort measures maintained t/o shift. All meds given as ordered. All needs met.
[2018-07-05] MEDS: MEROPENEM 1 G in IV NORMAL SALINE 100 ML IV SCH ×2 (06:03→15:02)
[2018-07-05] MEDS: BLOOD SUGAR DIAGNOSTIC 1 EACH STRIP VI SCH ×4 (06:34→21:14)
[2018-07-05 06:43] LABS: BASOPHILS # (AUTO) 0.1 K/uL (0.0-8.0); BASOPHILS % (AUTO) 1.3 % (0.0-2.0); EOSINOPHILS # (AUTO) 0.1 K/uL (0.0-0.7); EOSINOPHILS % (AUTO) 1.2 % (0.0-7.0); HEMATOCRIT 29.7 % (36.7-47.1); LYMPHOCYTES # (AUTO) 1.1 K/uL (20.0-40.0); LYMPHOCYTES % (AUTO) 20.2 % (20.5-51.5); MEAN CORPUSCULAR HEMOGLOBIN 32.7 uug (23.8-33.4); MEAN CORPUSCULAR HGB CONC 34 g/dL (32.5-36.3); MEAN CORPUSCULAR VOLUME 96.9 fL (73.0-96.2); MONOCYTES # (AUTO) 0.7 K/uL (2.0-10.0); MONOCYTES % (AUTO) 13.4 % (0.0-11.0); NEUTROPHILS # (AUTO) 3.5 K/uL (1.8-8.9); NEUTROPHILS % (AUTO) 63.9 % (38.5-71.5); PLATELET COUNT (AUTO) 68 K/uL (152-348); RED BLOOD CELL COUNT(AUTO) 3.06 MIL/uL (4.06-5.63); WHITE BLOOD COUNT (AUTO) 5.5 K/uL (3.6-10.2)
[2018-07-05 07:25] LABS: BILIRUBIN,TOTAL 1.9 mg/dL (0.2-1.0); CREATININE 0.8 mg/dL (0.6-1.3); MAGNESIUM 1.7 mg/dL (1.8-2.4); PHOSPHOROUS 3.5 mg/dL (2.5-4.9); POTASSIUM 3.3 mmol/L (3.5-5.1); TOTAL PROTEIN, SERUM 5.5 g/dL (6.4-8.2)
[2018-07-05] MEDS: VANCOMYCIN IV 1,500 MG in IV DEXTROSE 5% 500 ML IV SCH ×2 (09:59→23:32)
[2018-07-05] MEDS: PANTOPRAZOLE SODIUM 40 MG VIAL IV SCH (10:00)
[2018-07-05 11:10] VITALS: BP 129/60
--- NOTE | 2018-07-05 12:04 | NUR ---
Clinical Pharmacy Note: Vancomycin Dosing per Pharmacy Subjective: Vancomycin IV to start on this 59 yo male patient for empiric "cellulitis, UTI" Objective: BUN 20/Scr 0.8 WBC 5.5 Temperature 97 ht 167.6 cm wt 84.8 kg Assessment/Plan: Patient received vanco 1gm IVPB x1 in ED on 07/04 at 1830. Will start vancomycin 1500mg IVPB Q26hr for a predicted vancomycin steady state trough level of 15 mcg/ml. 1st dose today at 900. Will draw a vancomycin trough level prior to the 4th dose of vancomycin (not ordered yet). Will monitor renal function and adjust vancomycin dose, if needed, should renal function change significantly. Will follow daily.
--- NOTE | 2018-07-05 12:30 | NUR ---
Patient BS 76, and given orange juice two containers, and two jellos. He is able to tolerate. David Gardner RN
[2018-07-05] MEDS: INSULIN REGULAR, HUMAN 300 UNIT/3 ML VIAL SQ PRN ×2 (13:50→17:01)
[2018-07-05] MEDS: MAGNESIUM SULFATE/D5W 100 ML IV SCH ×2 (15:02→16:21)
[2018-07-05] MEDS: POTASSIUM CHLORIDE 50 ML IV SCH ×3 (15:03→20:00)
[2018-07-05 15:31] VITALS: BP 132/68
--- NOTE | 2018-07-05 15:40 | NUR ---
WOUND CARE CONSULT: PT PRESENTS WITH MULTIPLE SKIN ISSUES INCLUDING EDEMA WITH REDNESS TO BILATERAL LOWER EXTREMITIES, ESPECIALLY RT LEG INCLUDING THIGH, DRY ABRASIONS, WOUNDS TO RT FOOT, ESCHAR TO RT POSTERIOR HEEL, INCONTINENCE ASSOCIATED SKIN DAMAGE TO BUTTOCKS, INNER THIGHS, PRESENT ON ADMISSION. SCROTAL EDEMA NOTED. ABDOMEN IS VERY LARGE. RECOMMEND DPM CONSULT. ALL SKIN PROTECTION RECOMMENDATIONS DISCUSSED WITH NURSING STAFF. DEFER TO DPM FOR LOWER EXTREMITY ISSUES. WILL SEE PRN. CABRERA IN AGREEMENT WITH PLAN OF CARE. Addendum: 07/05/18 at 1543 by DEIDRE DICKSON RN Amended: Links added.
--- NOTE | 2018-07-05 17:30 | NUR ---
BS low 70s, see emar for result, and I did give patient 3 orange juices. He is able to tolerate when given slowly. David Gardner RN
--- NOTE | 2018-07-05 19:30 | NUR ---
Received pt with no IV access. Per Day Shift RN, pt to get total 4 bags of KCL for K+ level 3.3. RN stated 2 bags already given on day shift, #3 bag only half bag infused and will need to infuse the rest; he handed me #4 bag also to be given. Pt in bed, somewhat restless, lethargic, barely opens eyes and barely verbally responsive. Has garbled speech, moves all extremities. Strong body odor noted. Nursing care provided with comfort measures. Able to establish 2 IV access at both upper extremities and IV therapies resumed. Safety and fall precautions observed at all times.
[2018-07-05 19:55] VITALS: BP 130/76
[2018-07-05] MEDS: FOLIC ACID 1 MG in IV DEXTROSE 5% 50 ML IV SCH (20:31)
[2018-07-05] MEDS: THIAMINE HCL INJ 100 MG in IV DEXTROSE 5% 50 ML IV SCH (20:32)
[2018-07-05] MEDS: CEFTRIAXONE 1 G in IV DEXTROSE 5% 50 ML IV SCH (21:07)
[2018-07-05] MEDS: IV D5LR 1,000 ML IV PRN (22:56)
[2018-07-05] MEDS: LORAZEPAM 2 MG/1 ML VIAL IV PRN (23:53)
--- NOTE | 2018-07-06 00:01 | NUR ---
Required IV Ativan 1 mg for increasing restlessness, with immediate relief. Closely monitored. Safety measures maintained.
[2018-07-06] MEDS: Z GUARD REMEDY PASTE 57 GM TUBE TOP PRN ×2 (02:00→15:54)
--- NOTE | 2018-07-06 02:30 | NUR ---
Total bath/skin and wound care rendered, total linen change done. Incontinent of stools, smear amount and thus unable to collect sample for occult blood.
[2018-07-06 05:38] VITALS: BP 128/76
--- NOTE | 2018-07-06 05:56 | NUR ---
Continues to sleep. Stable night. Fall and safety precautions maintained. Required only one dose of IV Ativan this shift. Speech remains garbled. When asked of his name, pt mentions many different names. HOB up at all times. Circ checks adequate with mittens.
[2018-07-06 06:46] LABS: BASOPHILS % (AUTO) 0.8 % (0.0-2.0); EOSINOPHILS # (AUTO) 0.1 K/uL (0.0-0.7); EOSINOPHILS % (AUTO) 2.2 % (0.0-7.0); HEMATOCRIT 30.2 % (36.7-47.1); HEMOGLOBIN 10.2 g/dL (12.5-16.3); LYMPHOCYTES # (AUTO) 0.8 K/uL (20.0-40.0); LYMPHOCYTES % (AUTO) 17.1 % (20.5-51.5); MEAN CORPUSCULAR HEMOGLOBIN 32.4 uug (23.8-33.4); MEAN CORPUSCULAR HGB CONC 34 g/dL (32.5-36.3); MEAN CORPUSCULAR VOLUME 95.8 fL (73.0-96.2); MONOCYTES # (AUTO) 0.6 K/uL (2.0-10.0); MONOCYTES % (AUTO) 12.9 % (0.0-11.0); NEUTROPHILS # (AUTO) 3.2 K/uL (1.8-8.9); PLATELET COUNT (AUTO) 61 K/uL (152-348); RED BLOOD CELL COUNT(AUTO) 3.15 MIL/uL (4.06-5.63); WHITE BLOOD COUNT (AUTO) 4.8 K/uL (3.6-10.2)
[2018-07-06 07:04] LABS: BILIRUBIN,TOTAL 1.5 mg/dL (0.2-1.0); CREATININE 0.8 mg/dL (0.6-1.3); MAGNESIUM 2.1 mg/dL (1.8-2.4); PHOSPHOROUS 2.9 mg/dL (2.5-4.9); POTASSIUM 3.4 mmol/L (3.5-5.1); TOTAL PROTEIN, SERUM 5.6 g/dL (6.4-8.2)
[2018-07-06] MEDS: BLOOD SUGAR DIAGNOSTIC 1 EACH STRIP VI SCH ×4 (07:06→20:23)
[2018-07-06 07:17] LABS: EOSINOPHILS % (MANUAL) 2 % (0-8); LYMPHOCYTES % (MANUAL) 17 % (20-40); MONOCYTES % (MANUAL) 13 % (2-10)
[2018-07-06 07:19] LABS: BAND % (MANUAL) 5 % (0-10); NEUTROPHILS % (MANUAL) 63 % (42-75)
[2018-07-06] MEDS: PANTOPRAZOLE SODIUM 40 MG VIAL IV SCH (08:57)
[2018-07-06] MEDS: INSULIN REGULAR, HUMAN 300 UNIT/3 ML VIAL SQ PRN ×3 (08:58→16:54)
[2018-07-06] MEDS: LORAZEPAM 2 MG/1 ML VIAL IV PRN (09:05)
--- NOTE | 2018-07-06 09:54 | NUR ---
Received pt. on bed. Pt responsive to tactile and verbal stimuli. Unable to state name, time, place or event. Speech remain garbled. All due medications administered as ordered and tolerated well. Pt. with episodes of restlessness, confusion and agitation, PRN Ativan given as ordered. SUMANTH and LFA PIV remain patent and intact with no s/sx of IV complication. On IV fluids D5LR @ 75ML/HR with no ASE noted. No s/sx of hypo/hyperglycemia. Doty draining with liana colored urine, no sediments noted. Pt. bilateral hand mittens, good peripheral circulation noted. All pt. need attended promptly. Safety measures in place. Bed alarm on for safety. Call light and all frequently used items within pt. reach.
[2018-07-06] MEDS: POTASSIUM CHLORIDE 50 ML IV SCH ×2 (10:22→11:21)
--- NOTE | 2018-07-06 10:56 | NUR ---
Clinical Pharmacy Note: Vancomycin Dosing per Pharmacy Subjective: Vancomycin IV to continue on this 59 yo male patient for empiric "cellulitis, UTI" Objective: BUN 15/Scr 0.8 WBC 4.8 Temperature 4.8 ht 167.6 cm wt 84.8 kg Assessment/Plan: Will continue same dose of vancomycin 1500mg IVPB Q15hr for today. 3rd dose today at 1500. Will draw a vancomycin trough level prior to the 4th dose of vancomycin (ordered for 07/07 at 0530-RN has been informed to hold 0600 dose if vanco trough level above 20 mcg/ml). Pharmacist shall review the level in am & adjust the dose if needed. Will follow daily.
[2018-07-06 11:40] VITALS: BP 125/78
[2018-07-06] MEDS: VANCOMYCIN IV 1,500 MG in IV DEXTROSE 5% 500 ML IV SCH (14:02)
[2018-07-06 14:48] VITALS: BP 159/83
--- NOTE | 2018-07-06 15:00 | NUR ---
Received order from FIELD CANE SCALER to give Lactulose PO. Pt. tolerated PO intake with no difficulty swallowing. Planned paracentesis in AM per FIELD CANE SCALER.
[2018-07-06] MEDS: LACTULOSE 20 G/30 ML LIQUID UDC PO SCH ×2 (15:48→17:00)
--- NOTE | 2018-07-06 15:53 | NUR ---
Tree Surgeon Consult: Electrical And Instrumentation Manager received consultation from SS Director, Ivonne Wright to assess the patient, as patient is allegedly homeless, was positive for amphetamines and cannabinoids upon arrival, and is altered. Patient is a 59-year-old male who BIB EMS to the emergency department for altered mental status. Per chart, the patient was found sleeping on the sidewalk when a passerby called 911. Patient was admitted to med/surg for cellulitis, wound on RLE, UTI, Hepatic encephalopathy, and anemia. SW met with patient at bedside to assess for needs and address issues in consult above. Patient presented quite unkempt, malodorous, and was wearing mitt restraints. Per Saba MUÑIZ's notes, the patient verbalized his name as "Keron." SW used this name when speaking to the patient, and patient appeared responsive to it. Patient was alert and oriented x1 (name only). Patient was not oriented to time, place, or situation. Patient's speech was garbled and unintelligible. Patient was not able to verbalize his last name or where he was living prior to hospitalization. Patient presented in a confused, disoriented, and disorganized mood. Patient appeared restless. Patient was unable to participate in SS assessment due to mental status. SW collaborated with pt's RN, Prabhu, to endorse about patient's name to the next shift. SW will continue to be available to provide ongoing support and will be available to consult with placement for the patient, as he has a history of homelessness.
[2018-07-06] MEDS: ONDANSETRON 4 MG/2 ML VIAL IV PRN (17:38)
[2018-07-06] MEDS: THIAMINE HCL INJ 100 MG in IV DEXTROSE 5% 50 ML IV SCH (18:14)
[2018-07-06] MEDS: FOLIC ACID 1 MG in IV DEXTROSE 5% 50 ML IV SCH (18:14)
--- NOTE | 2018-07-06 19:00 | NUR ---
End of shift note: All due medications administered as ordered and tolerated well. No sign of acute distress or SOB was noted. Kept pt clean and dry throughout this shift. Safety measures maintained. All needs attended and met promptly. Bed in low position, brake and alarm on, side rails up x2 as an enabler. Call light and all frequently used items within pt. reach. Will endorse to next shift accordingly.
--- NOTE | 2018-07-06 19:20 | NUR ---
RECEIVED PATIENT LYING IN BED. ASLEEP, AROUSE TO VERBAL AND TACTILE STIMULI. MAINLY CONFUSED. IN NO ACUTE DISTRESS. NO SIGNS OR SYMPTOMS OF PAIN OR SOB NOTED. IV SITE ON RIGHT FA AND LEFT FA INTACT AND PATENT. IVF INFUSING. DALLAS CATHETER INTACT AND DRAINING VIA GRAVITY. WITH [place] COLOR URINE NOTED ON DALLAS BAG. HAND MITTENS IN PLACE. NO ANXIETY NOTED AT THIS TIME. SAFETY MEASURE INITIATED AND CALL REINA WITHIN REACH.
[2018-07-06 19:26] VITALS: BP 148/66
[2018-07-06] MEDS: CEFTRIAXONE 1 G in IV DEXTROSE 5% 50 ML IV SCH (20:16)
[2018-07-06] MEDS: IV D5LR 1,000 ML IV PRN (22:31)
[2018-07-07 03:33] VITALS: BP 129/78
[2018-07-07] MEDS: LORAZEPAM 2 MG/1 ML VIAL IV PRN ×4 (03:53→21:48)
[2018-07-07 06:05] LABS: BASOPHILS % (AUTO) 0.6 % (0.0-2.0); CREATININE 0.9 mg/dL (0.6-1.3); EOSINOPHILS # (AUTO) 0.1 K/uL (0.0-0.7); EOSINOPHILS % (AUTO) 1.3 % (0.0-7.0); HEMATOCRIT 29.6 % (36.7-47.1); HEMOGLOBIN 10.1 g/dL (12.5-16.3); LYMPHOCYTES # (AUTO) 0.7 K/uL (20.0-40.0); LYMPHOCYTES % (AUTO) 12.7 % (20.5-51.5); MAGNESIUM 1.8 mg/dL (1.8-2.4); MEAN CORPUSCULAR HEMOGLOBIN 32.7 uug (23.8-33.4); MEAN CORPUSCULAR HGB CONC 34 g/dL (32.5-36.3); MEAN CORPUSCULAR VOLUME 95.6 fL (73.0-96.2); MONOCYTES # (AUTO) 0.7 K/uL (2.0-10.0); MONOCYTES % (AUTO) 12.1 % (0.0-11.0); NEUTROPHILS # (AUTO) 4.2 K/uL (1.8-8.9); NEUTROPHILS % (AUTO) 73.3 % (38.5-71.5); PHOSPHOROUS 3.3 mg/dL (2.5-4.9); PLATELET COUNT (AUTO) 62 K/uL (152-348); POTASSIUM 3.5 mmol/L (3.5-5.1); RED BLOOD CELL COUNT(AUTO) 3.09 MIL/uL (4.06-5.63); WHITE BLOOD COUNT (AUTO) 5.7 K/uL (3.6-10.2)
--- NOTE | 2018-07-07 06:07 | NUR ---
AWAKE BUT MAINLY CONFUSED. ABLE TO FOLLOW SOME DIRECTION WHEN AWAKE. IN NO ACUTE DISTRESS. NO SIGNS OR SYMPTOMS OF PAIN OR SOB NOTED. AUDIBLE COURSE BREATH SOUND. IV SITE ON RIGHT FA AND LEFT FA INTACT AND PATENT. IVF INFUSING. NO ADVERSE EFFECT NOTED FROM IV ABX. DALLAS CATHETER INTACT AND DRAINING VIA GRAVITY. HAND MITTENS IN PLACE. SAFETY MEASURE MAINTAINED AND CALL REINA WITHIN REACH.
[2018-07-07] MEDS: VANCOMYCIN IV 1,500 MG in IV DEXTROSE 5% 500 ML IV SCH (06:15)
[2018-07-07] MEDS: BLOOD SUGAR DIAGNOSTIC 1 EACH STRIP VI SCH ×4 (06:30→22:22)
--- NOTE | 2018-07-07 07:15 | NUR ---
PATIENT LAYING IN BED RESTLESS, PATIENT IS MAINLY CONFUSED. NO ACUTE DISTRESS NOTED AT THIS TIME . NO C/O PAIN OR DISCOMFORT NOTED. IV SITE ON RIGHT FA AND LEFT FA ARE INTACT AND PATENT. DALLAS CATHETER INTACT . PATIENT NPO FOR PARACENTESIS TODAY. HAND MITTENS IN PLACE , CONTINUE TO MONITOR. PROVIDE SAFETY AT ALL TIMES AND CALL REINA WITHIN REACH.CONTINUE PLAN OF CARE.
--- NOTE | 2018-07-07 08:16 | NUR ---
Clinical Pharmacy Note: Vancomycin Dosing per Pharmacy Subjective: Vancomycin IV to continue on this 59 yo male patient for empiric "cellulitis, UTI" Objective: BUN 14/Scr 0.9 WBC 5.7 Temperature 98.1 ht 167.6 cm wt 84.8 kg trough today at 0530 Assessment/Plan: As trough within range, will continue same dose of vancomycin 1500mg IVPB Q15hr for today. Will continue to follow and adjust if renal fxn or condition were to change. If remains on prolonged course, will also consider re-ordering trough as well. Will follow
[2018-07-07] MEDS: LACTULOSE 20 G/30 ML LIQUID UDC PO SCH ×3 (09:00→17:00)
[2018-07-07] MEDS: PANTOPRAZOLE SODIUM 40 MG VIAL IV SCH (09:25)
[2018-07-07 11:47] VITALS: BP 123/76
[2018-07-07] MEDS ORDERED: LORAZEPAM 2 MG/1 ML VIAL IV ONE (13:00)
[2018-07-07] MEDS: CHLORDIAZEPOXIDE HCL 25 MG CAPSULE PO SCH ×2 (14:17→23:14)
--- NOTE | 2018-07-07 14:25 | NUR ---
trying to give patient medication PO and patient failed swallow eval, patient cough and vomit. attending RETAIL BRANCH MANAGER, Robyn, notified, orders for Nasogastric tube to low intermittent suction, once stomach content empty, Nasogastric tube can be use for medication administration.
--- NOTE | 2018-07-07 14:30 | NUR ---
Dr. Sagastume unable to proceed with paracentesis due to patient resistance , restless and agitated despite all intervention. He will try again tomorrow.
[2018-07-07 15:29] VITALS: BP 128/67
--- NOTE | 2018-07-07 15:51 | NUR ---
Unable to perform paracentesis with dr gamble due to patient moving and vomiting. Para on hold for tmrw.
--- NOTE | 2018-07-07 19:00 | NUR ---
RECEIVED SHIFT CHANGE REPORT FROM NURSE SEPTEMBER. 59 Y/O HOMELESS MALE WITH HISTORY OF LIVER CIRRHOSIS, ASCITES, ANEMMIA, AND R LUE CELLULITIS ADMITTED FOR AMS AND ETOH TOXICITY. PT IN BED, WITH BL SOFT MITTEN RESTRAINTS, ASLEEP, RESTING COMFORTABLY. HAS 1:1 SITTER FOR PROTECTION FROM SELF; FULL CODE; BED REST ONLY; HEPLOCK IV ON R FOREARM IS PATENT AND INTACT; VS WNL; WILL CONTINUE TO MONITOR
--- NOTE | 2018-07-07 19:00 | NUR ---
RECEIVED PATIENT IN BED ASLEEP BUT EASILY AROUSABLE, HOB ELEVATED WITH MOIST COUGH NOTED, PATIENT ON NGT FOR MEDICATIONS ONLY. PATIENT CANNOT TOLERATE PO MEDICATIONS AND FOOD PER REPORT OF AM NURSE. PO MEDS AND FLUID ON HOLD AT THIS TIME. MEDICATION WILL BE GIVEN VIA NGT. WILL CONTINUE TO MONITOR.
[2018-07-07] MEDS: THIAMINE HCL INJ 100 MG in IV DEXTROSE 5% 50 ML IV SCH (19:40)
[2018-07-07 20:00] VITALS: BP 118/67
[2018-07-07] MEDS: FOLIC ACID 1 MG in IV DEXTROSE 5% 50 ML IV SCH (20:19)
[2018-07-07] MEDS: CEFTRIAXONE 1 G in IV DEXTROSE 5% 50 ML IV SCH (21:44)
[2018-07-07] MEDS: IV D5/ 0.9% NACL 1,000 ML IV PRN (22:24)
--- NOTE | 2018-07-07 22:32 | NUR ---
PATIENT BLOOD SUGAR FROM 49 TO 74, PATIENT CANNOT TOLERATE PO MEDICATIONS COUGHING. NOTIFY GLADYS BAINS, AND ORDERED TO GIVEN D5NS AT 100. PATIENT HAS EPISODE OF AGITATION TRIES PULLED OUT IV LINES AND NGT TUBING, RESTLESS IN BED. WILL CONT TO MONITOR.
[2018-07-08 04:00] VITALS: BP 136/78
[2018-07-08] MEDS: LORAZEPAM 2 MG/1 ML VIAL IV PRN ×2 (04:04→08:44)
[2018-07-08] MEDS: BLOOD SUGAR DIAGNOSTIC 1 EACH STRIP VI SCH ×4 (05:19→22:00)
[2018-07-08] MEDS: CHLORDIAZEPOXIDE HCL 25 MG CAPSULE PO SCH ×3 (05:27→21:34)
[2018-07-08 06:35] LABS: BASOPHILS % (AUTO) 0.8 % (0.0-2.0); EOSINOPHILS # (AUTO) 0.1 K/uL (0.0-0.7); HEMATOCRIT 30.3 % (36.7-47.1); HEMOGLOBIN 10.1 g/dL (12.5-16.3); LYMPHOCYTES # (AUTO) 0.8 K/uL (20.0-40.0); MEAN CORPUSCULAR HEMOGLOBIN 32.4 uug (23.8-33.4); MEAN CORPUSCULAR HGB CONC 33 g/dL (32.5-36.3); MEAN CORPUSCULAR VOLUME 96.7 fL (73.0-96.2); MONOCYTES # (AUTO) 0.5 K/uL (2.0-10.0); MONOCYTES % (AUTO) 10.3 % (0.0-11.0); NEUTROPHILS # (AUTO) 3.1 K/uL (1.8-8.9); NEUTROPHILS % (AUTO) 69.9 % (38.5-71.5); PLATELET COUNT (AUTO) 51 K/uL (152-348); RED BLOOD CELL COUNT(AUTO) 3.13 MIL/uL (4.06-5.63); WHITE BLOOD COUNT (AUTO) 4.5 K/uL (3.6-10.2)
[2018-07-08 06:44] LABS: CREATININE 0.8 mg/dL (0.6-1.3); MAGNESIUM 1.8 mg/dL (1.8-2.4); PHOSPHOROUS 3.2 mg/dL (2.5-4.9); POTASSIUM 3.4 mmol/L (3.5-5.1)
--- NOTE | 2018-07-08 07:10 | NUR ---
RECEIVED PATIENT, IN THE BED, AGITATED EVEN AFTER GIVEN ATIVAN, BED INLOW POSITION,LOCKED HE IS ON BILATERAL MITTENS, 1 T0 2 OBSERVATION, NG TUBE FOR MEDICATION ONLY, WILL CONTINUE TO MONITOR
[2018-07-08] MEDS: FAMOTIDINE. 20 MG/2 ML VIAL IV SCH ×2 (08:43→21:32)
[2018-07-08] MEDS: IV D5/ 0.9% NACL 1,000 ML IV PRN ×2 (08:44→21:34)
[2018-07-08 10:16] VITALS: BP 135/89
--- NOTE | 2018-07-08 10:21 | NUR ---
Social service note: dairy husbandry worker consulted on case in an attempt to obtain information about where patient came from. Patient was found on the corner of [address] and [address]. dairy husbandry worker called [facility] [address] [[address], [place] [address]; ] and spoke with J Luis. Per J Luis, ambulance shift B was on duty and was not on at this time. J Luis further stated that they receive many "Nakul Freeman's" and its unlikely they would have information as this is typically a police department issue. dairy husbandry worker will follow-up as needed.
[2018-07-08] MEDS: ACETYLCYSTEINE 10% 4ML VIAL NEB SCH ×3 (11:04→23:30)
[2018-07-08] MEDS: IPRATROPIUM BROMIDE 0.5 MG/2.5 ML NEBU NEB SCH ×4 (11:05→23:30)
[2018-07-08] MEDS: ALBUTEROL SULFATE 2.5 MG/ 0.5 ML NEBU NEB SCH ×4 (11:05→23:30)
[2018-07-08] MEDS: LACTULOSE 20 G/30 ML LIQUID UDC PO SCH ×3 (11:42→17:43)
[2018-07-08] MEDS: QUETIAPINE FUMARATE 25 MG TABLET PO SCH (11:46)
[2018-07-08] MEDS: SPIRONOLACTONE 25 MG TABLET PO SCH (11:46)
[2018-07-08] MEDS: FUROSEMIDE 20 MG TABLET PO SCH (11:47)
[2018-07-08] MEDS: POTASSIUM CHLORIDE 50 ML IV SCH ×2 (12:34→13:05)
--- NOTE | 2018-07-08 13:32 | NUR ---
Rn stated patient has ng tube and will administer meds. If patient becomes calm after meds we will do paracentesis and art doppler
[2018-07-08 15:08] VITALS: BP 133/82
[2018-07-08] MEDS: Z GUARD REMEDY PASTE 57 GM TUBE TOP PRN (17:45)
[2018-07-08] MEDS: THIAMINE HCL 100 MG TABLET NG SCH (19:12)
[2018-07-08] MEDS: FOLIC ACID 1 MG TABLET NG SCH (19:12)
[2018-07-08 20:00] VITALS: BP 110/65
[2018-07-08] MEDS ORDERED: QUETIAPINE FUMARATE 25 MG TABLET PO SCH (21:00)
[2018-07-08] MEDS: CEFTRIAXONE 1 G in IV DEXTROSE 5% 50 ML IV SCH (21:32)
--- NOTE | 2018-07-08 23:30 | NUR ---
FATOUD .HERSON REGARDING CLARIFICATION OF ORDER, NO ANSWER SO I HAVE TO CALL ANSWERING SERVICE AND WAS ABLE TO TALK TO TERESO MACEKY, HE SAID TO HOLD PLATELET TRANSFUSION UNLESS THE PT IS ACTIVELY BLEEDING ,AWARE OF PLATELET COUNT OF 51, AND OK TO RESTART PT ON TELEMETRY.
[2018-07-09] VITALS (12 sets, daily range): BP systolic 110–150; BP diastolic 55–94
[2018-07-09] MEDS: CHLORDIAZEPOXIDE HCL 25 MG CAPSULE PO SCH ×3 (05:38→21:52)
--- NOTE | 2018-07-09 07:00 | NUR ---
PT LETHARGIC OVERNIGHT, OPENS EYES WHEN CALLED HIS NAME ( KIRSTEN) BUT OTHERWISE NOT CONVERSING , UTTER WORDS THAT INCOMPREHENSIBLE. RESTLESS , ROLLING AROUND THE BED, KEPT CLEAN AND DRY. HAD X2 LIQUID STOOL. ORAL SUCTIONED WITH FROTHY SALIVA, CONTINUE WITH ANTIBIOTICS, LAB CAME BLOOD DRAWN AND RESULTED BLOOD SUGAR 97MG/DL. CONTINUE ON SITTER OBSERVATION FOR SAFETY,MITTENS IN PLACE . ALL NEEDS ATTENDED, SINUS RHYTHM ON MONITOR.
[2018-07-09 07:02] LABS: EOSINOPHILS # (AUTO) 0.1 K/uL (0.0-0.7); HEMOGLOBIN 10.8 g/dL (12.5-16.3); LYMPHOCYTES # (AUTO) 0.6 K/uL (20.0-40.0); MONOCYTES # (AUTO) 0.4 K/uL (2.0-10.0); NEUTROPHILS # (AUTO) 2.5 K/uL (1.8-8.9)
[2018-07-09 07:04] LABS: BASOPHILS % (AUTO) 1.1 % (0.0-2.0); EOSINOPHILS % (AUTO) 3.1 % (0.0-7.0); HEMATOCRIT 31.9 % (36.7-47.1); LYMPHOCYTES % (AUTO) 16.7 % (20.5-51.5); MEAN CORPUSCULAR HEMOGLOBIN 32.3 uug (23.8-33.4); MEAN CORPUSCULAR HGB CONC 34 g/dL (32.5-36.3); MEAN CORPUSCULAR VOLUME 95.5 fL (73.0-96.2); NEUTROPHILS % (AUTO) 68.1 % (38.5-71.5); RED BLOOD CELL COUNT(AUTO) 3.34 MIL/uL (4.06-5.63); WHITE BLOOD COUNT (AUTO) 3.7 K/uL (3.6-10.2)
[2018-07-09 07:10] LABS: PLATELET COUNT (AUTO) 44 K/uL (152-348)
--- NOTE | 2018-07-09 07:10 | NUR ---
received report from shift lab technician nurse, patient in bed asleep, no distress noted at this time. Dried blood seen on patient's mouth, iv intact, fluids continued, and sitter at bedside.
[2018-07-09 07:13] LABS: CREATININE 0.8 mg/dL (0.6-1.3); MAGNESIUM 1.8 mg/dL (1.8-2.4); PHOSPHOROUS 3.1 mg/dL (2.5-4.9); POTASSIUM 3.5 mmol/L (3.5-5.1)
[2018-07-09] MEDS: IPRATROPIUM BROMIDE 0.5 MG/2.5 ML NEBU NEB SCH ×4 (07:19→19:33)
[2018-07-09] MEDS: ALBUTEROL SULFATE 2.5 MG/ 0.5 ML NEBU NEB SCH ×4 (07:19→19:34)
[2018-07-09] MEDS: ACETYLCYSTEINE 10% 4ML VIAL NEB SCH ×3 (07:19→19:34)
[2018-07-09 07:29] LABS: BAND % (MANUAL) 5 % (0-10); EOSINOPHILS % (MANUAL) 4 % (0-8); LYMPHOCYTES % (MANUAL) 6 % (20-40); MONOCYTES % (MANUAL) 6 % (2-10); NEUTROPHILS % (MANUAL) 79 % (42-75)
[2018-07-09] MEDS: BLOOD SUGAR DIAGNOSTIC 1 EACH STRIP VI SCH ×4 (07:46→22:00)
[2018-07-09] MEDS: LACTULOSE 20 G/30 ML LIQUID UDC PO SCH ×3 (09:16→16:22)
[2018-07-09] MEDS: FAMOTIDINE. 20 MG/2 ML VIAL IV SCH (09:16)
[2018-07-09] MEDS: FUROSEMIDE 20 MG TABLET PO SCH (09:16)
[2018-07-09] MEDS: QUETIAPINE FUMARATE 25 MG TABLET PO SCH (09:17)
[2018-07-09] MEDS: SPIRONOLACTONE 25 MG TABLET PO SCH (09:18)
[2018-07-09] MEDS ORDERED: POTASSIUM CHLORIDE 20 MEQ POWDER PACKET GT ONE (11:15)
[2018-07-09 11:35] LABS: ABG BASE EXCESS 1.3 mmol/L; ABG HCO3 25.3 mmol/L; ABG PCO2 37.7 mmHg (35.0-45.0); ABG PH 7.445 (7.350-7.450); ABG PO2 57.3 mmHg (75.0-100.0); ABG SITE RIGHT RADIAL; ABG TOTAL HEMOGLOBIN 10.6 G/dL (13.5-18.0); COHb 1.7 % (0.5-1.5); MetHb 0.3 % (0.0-1.5); O2Hb 86.4 % (94.0-97.0); VENT MODE ROOM AIR
[2018-07-09 11:50] LABS: BILIRUBIN,TOTAL 1.2 mg/dL (0.2-1.0); CREATININE 0.8 mg/dL (0.6-1.3); POTASSIUM 3.4 mmol/L (3.5-5.1); TOTAL PROTEIN, SERUM 5.2 g/dL (6.4-8.2)
[2018-07-09 12:10] LABS: *OCCULT BLOOD STOOL POSITIVE (NEGATIVE)
--- NOTE | 2018-07-09 14:25 | NUR ---
Patient started platelet transfusion, vitals recorded and stable at this time.
--- NOTE | 2018-07-09 15:10 | NUR ---
Patient being prepared to have ultrasound guided paracentesis, patient was laid back to scan abdomen with US, and patient started to cough up brown fluid and shortly after started to cough up blood. Vitals recorded and oxygen desaturated to 88% Rapid response called and patient suctioned.
[2018-07-09] MEDS ORDERED: OCTREOTIDE ACETATE DRIP 1,250 MCG in IV NORMAL SALINE 247.5 ML IV ONE (15:30)
--- NOTE | 2018-07-09 15:40 | NUR ---
Orders to insert midline received and placed in right upper arm by PICC line nurse. Patient being prepared to be transferred to CCU.
[2018-07-09 15:45] LABS: BASOPHILS % (AUTO) 0.6 % (0.0-2.0); EOSINOPHILS # (AUTO) 0.2 K/uL (0.0-0.7); EOSINOPHILS % (AUTO) 2.2 % (0.0-7.0); HEMATOCRIT 30.7 % (36.7-47.1); HEMOGLOBIN 10.2 g/dL (12.5-16.3); LYMPHOCYTES # (AUTO) 0.7 K/uL (20.0-40.0); LYMPHOCYTES % (AUTO) 10.7 % (20.5-51.5); MEAN CORPUSCULAR HEMOGLOBIN 31.9 uug (23.8-33.4); MEAN CORPUSCULAR HGB CONC 33 g/dL (32.5-36.3); MEAN CORPUSCULAR VOLUME 96.4 fL (73.0-96.2); MONOCYTES # (AUTO) 0.7 K/uL (2.0-10.0); NEUTROPHILS # (AUTO) 5.1 K/uL (1.8-8.9); NEUTROPHILS % (AUTO) 76.5 % (38.5-71.5); PLATELET COUNT (AUTO) 53 K/uL (152-348); RED BLOOD CELL COUNT(AUTO) 3.19 MIL/uL (4.06-5.63); WHITE BLOOD COUNT (AUTO) 6.7 K/uL (3.6-10.2)
[2018-07-09 15:45] LABS: ABG BASE EXCESS 0.1 mmol/L; ABG PCO2 41.5 mmHg (35.0-45.0); ABG PH 7.397 (7.350-7.450); ABG PO2 59.6 mmHg (75.0-100.0); ABG SITE RIGHT RADIAL; ABG TOTAL HEMOGLOBIN 11.4 G/dL (13.5-18.0); COHb 1.3 % (0.5-1.5); O2Hb 85.9 % (94.0-97.0); VENT MODE Nasal Cannula 6L
--- NOTE | 2018-07-09 16:00 | NUR ---
received patient from [facility], transferred c/o bright red blood coming out form the mouth and from the ngt about 300 ml.NELLA Carlson ordered for the transfer to closely monitor patient for bleeding varices.patient in very lethargic and very restless doesn't follow commands .as per NELLA barriga she has new orders ,will follow.connected patient to heart monitor .will follow up orders .
[2018-07-09] MEDS: OCTREOTIDE ACETATE DRIP 1,250 MCG in IV NORMAL SALINE 247.5 ML IV PRN (16:22)
[2018-07-09] MEDS: PANTOPRAZOLE SODIUM 40 MG VIAL IV SCH ×2 (16:38→21:53)
[2018-07-09] MEDS: IV D5/ 0.9% NACL 1,000 ML IV PRN (16:45)
--- NOTE | 2018-07-09 16:50 | NUR ---
transported patient to CT for ct of the head .pre medicated with Ativan patient very restless
[2018-07-09] MEDS ORDERED: LORAZEPAM 2 MG/1 ML VIAL IV ONE (17:00)
--- NOTE | 2018-07-09 17:20 | NUR ---
back from CT ,tolerated .
[2018-07-09] MEDS: FOLIC ACID 1 MG TABLET NG SCH (18:03)
[2018-07-09] MEDS: THIAMINE HCL 100 MG TABLET NG SCH (18:04)
[2018-07-09] MEDS ORDERED: PIPERACILLIN/TAZOBACTAM/D5W 3.375 G in PREMIXED 1 EACH IV SCH (18:45)
[2018-07-09] MEDS: PIPERACILLIN/TAZOBACTAM/D5W 3.375 G in PREMIXED 1 EACH IV SCH (21:53)
--- NOTE | 2018-07-09 23:00 | NUR ---
per Laura Carlson, NELLA no further plts at this time.
[2018-07-10] VITALS (20 sets, daily range): BP systolic 81–160; BP diastolic 51–108
[2018-07-10] MEDS: IV D5/ 0.9% NACL 1,000 ML IV PRN ×2 (03:58→14:28)
[2018-07-10 04:29] LABS: BASOPHILS % (AUTO) 0.9 % (0.0-2.0); EOSINOPHILS # (AUTO) 0.1 K/uL (0.0-0.7); EOSINOPHILS % (AUTO) 1.6 % (0.0-7.0); HEMATOCRIT 32.3 % (36.7-47.1); HEMOGLOBIN 10.7 g/dL (12.5-16.3); LYMPHOCYTES # (AUTO) 0.6 K/uL (20.0-40.0); LYMPHOCYTES % (AUTO) 11.1 % (20.5-51.5); MEAN CORPUSCULAR HEMOGLOBIN 31.7 uug (23.8-33.4); MEAN CORPUSCULAR HGB CONC 33 g/dL (32.5-36.3); MEAN CORPUSCULAR VOLUME 95.8 fL (73.0-96.2); MONOCYTES # (AUTO) 0.4 K/uL (2.0-10.0); MONOCYTES % (AUTO) 8.5 % (0.0-11.0); NEUTROPHILS # (AUTO) 3.9 K/uL (1.8-8.9); NEUTROPHILS % (AUTO) 77.9 % (38.5-71.5); PLATELET COUNT (AUTO) 62 K/uL (152-348); RED BLOOD CELL COUNT(AUTO) 3.37 MIL/uL (4.06-5.63)
[2018-07-10 04:59] LABS: CREATININE 0.8 mg/dL (0.6-1.3); MAGNESIUM 1.8 mg/dL (1.8-2.4)
[2018-07-10] MEDS: BLOOD SUGAR DIAGNOSTIC 1 EACH STRIP VI SCH ×4 (06:00→20:59)
[2018-07-10] MEDS: CHLORDIAZEPOXIDE HCL 25 MG CAPSULE PO SCH ×3 (06:00→20:51)
--- NOTE | 2018-07-10 06:00 | NUR ---
0500 AM Patient getting more pulmonary congested; frothing dark beige secretions about the mouth. With respiratory therapist, unable to adequately nasal tracheally suction. However, we did cause a nose bleed & the patient was aspirating blood. Contacted Dr Daniels, who authorized me to contact ER / MD to ETT / pulmonary toliet & airway protection.
--- NOTE | 2018-07-10 06:20 | NUR ---
Called to room CCU-3 for intubation. Pt intubated and placed on ventilator on settings by ED MD SCHAEFFER. Settings are AC 20, VT 600, FIO2-100%. 7.5 ETT is patent and secure at approx. 23cm at the lip. BVM at bedside. Serrano alarm parameters have been checked and remain audible. Serrano plugged into the red outlet.
[2018-07-10] MEDS: PIPERACILLIN/TAZOBACTAM/D5W 3.375 G in PREMIXED 1 EACH IV SCH ×3 (06:23→21:17)
[2018-07-10] MEDS: PROPOFOL 100 ML IV PRN ×2 (06:27→17:10)
[2018-07-10 06:34] LABS: ABG HCO3 22.3 mmol/L; ABG PCO2 36.4 mmHg (35.0-45.0); ABG PH 7.406 (7.350-7.450); ABG PO2 318.5 mmHg (75.0-100.0); ABG SITE LEFT RADIAL; ABG TOTAL HEMOGLOBIN 10.5 G/dL (13.5-18.0); COHb 0.2 % (0.5-1.5); MetHb 0.3 % (0.0-1.5); O2Hb 98.3 % (94.0-97.0); VENT MODE VENT - A/C; VT, ABG 600 mL
[2018-07-10] MEDS: ACETYLCYSTEINE 10% 4ML VIAL NEB SCH ×3 (06:49→19:43)
[2018-07-10] MEDS: ALBUTEROL SULFATE 2.5 MG/ 0.5 ML NEBU NEB SCH ×4 (07:29→19:43)
[2018-07-10] MEDS: IPRATROPIUM BROMIDE 0.5 MG/2.5 ML NEBU NEB SCH ×4 (07:29→19:43)
--- NOTE | 2018-07-10 07:29 | NUR ---
RT PT WAS RECEIVED ON LEONARDO VENT AT THIS TIME, VENT SETTING ARE AC20, VT 600, PEPP +0 FIO2 WAS TITRATED DOWN TO 60%. PT ET-TUBE SECURED WITH ANCHOR FAST AT 23CM ET-TUBE SIZE 7.5. PT WAS SUCTION ORAL CARE WAS DONE, TX WAS GIVEN, HME WAS CHANGED. PT AT THIS TIME IS TOLERATING VENT, ALARMS ON AND AUDIBLE. WILL CONTINUE TO MONITOR PT. POST ABG WAS DONE BY KAYA HOGUE.
[2018-07-10] MEDS: SPIRONOLACTONE 25 MG TABLET PO SCH (08:46)
[2018-07-10] MEDS: LACTULOSE 20 G/30 ML LIQUID UDC PO SCH ×3 (08:47→16:59)
[2018-07-10] MEDS: PANTOPRAZOLE SODIUM 40 MG VIAL IV SCH ×2 (08:47→20:56)
[2018-07-10] MEDS: QUETIAPINE FUMARATE 25 MG TABLET PO SCH (08:47)
[2018-07-10] MEDS: FUROSEMIDE 20 MG TABLET PO SCH (08:47)
--- NOTE | 2018-07-10 10:18 | NUR ---
seen by dr Cooper and NELLA Carlson.orders received Addendum: 07/10/18 at 1019 by MONICO HADDAD RN Amended: Links added.
[2018-07-10] MEDS ORDERED: FUROSEMIDE 40 MG/4 ML VIAL IV ONE (10:30)
[2018-07-10] MEDS: ALBUMIN HUMAN 25% 25 GM in PREMIXED 1 EACH IV SCH ×3 (11:31→15:06)
[2018-07-10] MEDS: INSULIN REGULAR, HUMAN 300 UNIT/3 ML VIAL SQ PRN ×2 (11:54→16:57)
--- NOTE | 2018-07-10 12:05 | NUR ---
Received consult for tube feeding recommendation. Currently patient has NGT for suction, and enteral feeding via g-tube not warranted at this this time. When appropriate, suggest Vital AF 1.2 @ 65 ml/hour every 20 hours. Additional 200 ml H20 TID, and Culturelle BID. Addendum: 07/10/18 at [address] Amended: Links added.
[2018-07-10] MEDS: HALOPERIDOL 0.5 MG TABLET PO SCH ×2 (12:45→17:00)
[2018-07-10] MEDS: OCTREOTIDE ACETATE DRIP 1,250 MCG in IV NORMAL SALINE 247.5 ML IV PRN (15:50)
[2018-07-10] MEDS ORDERED: FUROSEMIDE 40 MG/4 ML VIAL IVP ONE (16:00)
[2018-07-10] MEDS: THIAMINE HCL 100 MG TABLET NG SCH (17:00)
[2018-07-10] MEDS: FOLIC ACID 1 MG TABLET NG SCH (17:01)
[2018-07-10] MEDS: IV NORMAL SALINE 250 ML IV PRN (17:24)
--- NOTE | 2018-07-10 17:55 | NUR ---
RT PT REMAINS ON VENT NO CHANGES MADE AT THIS TIME WILL CONTINUE TO MONITOR PT . VENT ALARMS ON AND AUDIBLE AMBU BAG AT BED SIDE . PT CURRENT SETTINGS ARE AC 20, VT600, PEEP +0, FIO2 60%
--- NOTE | 2018-07-10 19:27 | NUR ---
REPORT given to Nathaniel HARE
--- NOTE | 2018-07-10 22:00 | NUR ---
Patient on Diprivan titration; held Seroquel. Addendum: 07/11/18 at 0150 by MJ PETTIT RN Con't hold plts / C. Robyn N.P. unless active bleeding present.
[2018-07-11] VITALS (24 sets, daily range): BP systolic 79–152; BP diastolic 51–79
[2018-07-11] MEDS: IV D5/ 0.9% NACL 1,000 ML IV PRN ×2 (01:08→10:50)
[2018-07-11 04:38] LABS: BASOPHILS # (AUTO) 0.1 K/uL (0.0-8.0); BASOPHILS % (AUTO) 0.9 % (0.0-2.0); EOSINOPHILS # (AUTO) 0.1 K/uL (0.0-0.7); EOSINOPHILS % (AUTO) 1.7 % (0.0-7.0); HEMATOCRIT 29.3 % (36.7-47.1); LYMPHOCYTES # (AUTO) 0.5 K/uL (20.0-40.0); LYMPHOCYTES % (AUTO) 8.8 % (20.5-51.5); MEAN CORPUSCULAR HEMOGLOBIN 32.5 uug (23.8-33.4); MEAN CORPUSCULAR HGB CONC 34 g/dL (32.5-36.3); MEAN CORPUSCULAR VOLUME 95.4 fL (73.0-96.2); MONOCYTES # (AUTO) 0.4 K/uL (2.0-10.0); MONOCYTES % (AUTO) 6.4 % (0.0-11.0); NEUTROPHILS # (AUTO) 4.9 K/uL (1.8-8.9); NEUTROPHILS % (AUTO) 82.2 % (38.5-71.5); PLATELET COUNT (AUTO) 57 K/uL (152-348); RED BLOOD CELL COUNT(AUTO) 3.07 MIL/uL (4.06-5.63)
[2018-07-11 04:52] LABS: BILIRUBIN,TOTAL 2.1 mg/dL (0.2-1.0); MAGNESIUM 1.7 mg/dL (1.8-2.4); PHOSPHOROUS 3.6 mg/dL (2.5-4.9); POTASSIUM 3.4 mmol/L (3.5-5.1)
[2018-07-11] MEDS: CHLORDIAZEPOXIDE HCL 25 MG CAPSULE PO SCH ×3 (05:48→21:22)
[2018-07-11] MEDS: PIPERACILLIN/TAZOBACTAM/D5W 3.375 G in PREMIXED 1 EACH IV SCH ×3 (05:56→21:21)
[2018-07-11] MEDS ORDERED: hydrALAZINE HCL 20 MG/1 ML VIAL IV PRN (06:30)
[2018-07-11] MEDS: ALBUTEROL SULFATE 2.5 MG/ 0.5 ML NEBU NEB SCH ×4 (07:20→19:15)
[2018-07-11] MEDS: ACETYLCYSTEINE 10% 4ML VIAL NEB SCH ×3 (07:20→23:24)
[2018-07-11] MEDS: IPRATROPIUM BROMIDE 0.5 MG/2.5 ML NEBU NEB SCH ×4 (07:20→19:15)
--- NOTE | 2018-07-11 07:20 | NUR ---
PT REC'G ON LEONARDO VENT WITH SETTING AC20, VT 600, FIO2 60%. 7.5 ETT SECURED WITH ANCHOR FAST AT 23CM AT LIP. TX'S TO BE GIVEN Q4WA. PT AT THIS TIME IS TOLERATING VENT SETTINGS WELL WITH NOT DISTRESS NOTED. VENT ALARMS AUDIBLE, CHECKED AND RESET. ABG'S TO BE DRAWN THIS AM. WILL CONTINUE TO MONITOR
[2018-07-11] MEDS: PROPOFOL 100 ML IV PRN ×2 (08:04→18:05)
[2018-07-11] MEDS: BLOOD SUGAR DIAGNOSTIC 1 EACH STRIP VI SCH ×4 (08:05→20:53)
[2018-07-11 08:13] LABS: ABG HCO3 26.3 mmol/L; ABG PCO2 40.1 mmHg (35.0-45.0); ABG PH 7.435 (7.350-7.450); ABG PO2 74.1 mmHg (75.0-100.0); ABG SITE RIGHT RADIAL; ABG TOTAL HEMOGLOBIN 10.2 G/dL (13.5-18.0); COHb 1.1 % (0.5-1.5); MetHb 0.3 % (0.0-1.5); O2Hb 91.8 % (94.0-97.0); VENT MODE VENT - A/C 20; VT, ABG 600 mL
[2018-07-11] MEDS: SPIRONOLACTONE 25 MG TABLET PO SCH (08:44)
[2018-07-11] MEDS: PANTOPRAZOLE SODIUM 40 MG VIAL IV SCH ×2 (08:44→20:56)
[2018-07-11] MEDS: LACTULOSE 20 G/30 ML LIQUID UDC PO SCH ×3 (08:44→17:08)
--- NOTE | 2018-07-11 09:45 | NUR ---
Pulmonary services Dr. Cooper in the unit to examine pt. full report given vent change orders received. Nir Rt notified and a PEEP of 5 added to settings.
--- NOTE | 2018-07-11 09:50 | NUR ---
PER DR TREVIZO ORDER, ADD PEEP +5
[2018-07-11] MEDS: HALOPERIDOL 0.5 MG TABLET NG SCH ×2 (09:53→17:07)
[2018-07-11 11:37] LABS: POTASSIUM 3.2 mmol/L (3.5-5.1); TOTAL PROTEIN, SERUM 4.5 g/dL (6.4-8.2)
--- NOTE | 2018-07-11 12:00 | NUR ---
Attending N.P. in the unit to examine patient, full report given orders received and carried.
[2018-07-11] MEDS: IV D5W 1000ML 1,000 ML IV PRN (12:23)
[2018-07-11] MEDS ORDERED: ROCURONIUM BROMIDE 50 MG/5 ML VIAL IV ONE (12:25)
[2018-07-11] MEDS ORDERED: ETOMIDATE 20 MG/10 ML VIAL MC ONE (12:25)
[2018-07-11] MEDS: POTASSIUM CHLORIDE 50 ML IV SCH ×4 (12:26→14:58)
[2018-07-11] MEDS ORDERED: NOREPINEPHRINE BITARTRATE 8 MG in IV DEXTROSE 5% 500 ML IV PRN ×2 (12:45→14:00)
[2018-07-11] MEDS: ALBUMIN HUMAN 25% 25 GM in PREMIXED 1 EACH IV SCH ×2 (13:13→14:15)
[2018-07-11] MEDS: LORAZEPAM 2 MG/1 ML VIAL IV PRN ×2 (13:56→16:56)
--- NOTE | 2018-07-11 15:07 | NUR ---
Nutrition consult for TF was received. Patient was re-evaluated. NPO status since 07/05 (6 days duration) with no nutrition support and patient still with NGT to suction. Spoke with RN, reported no plans to start TF today. Patient also on D5% @ 75 ml/hr (additional ~300 kcal daily) Anthropometrics: Ht: 66 in ABW: 187#/85kg (07/11, bedscale) IBW: 142#/64.5kg % IBW: 132% BMI: 30.2 kg/m2 Estimated nutritional needs: Kcal: 6843-2731 kcal/day (25-30 kcal/kg IBW) Protein: 85-97 gm/day (1.3-1.5 gm/kg IBW) Fluid: per MD - fluid overloaded Recommendations: - Once medically feasible for enteral nutrition support, recommend initiate TwoCal HN @ 10 ml/hr and titrate up by 10 ml/hr q8h to goal rate of 40 ml/hr x 22 hrs. This would provide 1760 kcal, 73 gm protein, 616 ml water q24h. This meets 90% of high end of est. kcal needs and 86% of low end of est. protein needs. - Additional free water per MD/DIRECTOR INSTRUMENTATION - Correct any electrolyte abnormalities prior to initiation of nutrition support to avoid refeeding syndrome - Recommend zinc supplementation - Recommend BCAA supplementation, if possible, for encephalopathy Addendum: 07/11/18 at [address] RD Amended: Links added.
[2018-07-11] MEDS: MAGNESIUM SULFATE/D5W 100 ML IV SCH ×2 (17:03→18:07)
[2018-07-11] MEDS ORDERED: LORAZEPAM 2 MG/1 ML VIAL IV PRN (17:30)
--- NOTE | 2018-07-11 18:00 | NUR ---
Propofol resumed at this time due to restlessness and agitation. Patient restless agitated despite ativan administration. Attending N.P called to be notified. Orders to resume propofol received. N.P. also informed that pt. is not following commands and that at this time is attempting to reach ETT. Will continue with care plan.
[2018-07-11] MEDS: FOLIC ACID 1 MG TABLET NG SCH (18:08)
[2018-07-11] MEDS: THIAMINE HCL 100 MG TABLET NG SCH (18:08)
--- NOTE | 2018-07-11 18:26 | NUR ---
Patient left in bed this time mildly sedated, propofol at 10mcg/kg/min. On the ventilator with A/c 20, tv 600 +5, and 60% FIO2. No restlessness or agitation after propofol restarted. NG clamped due to medication administration. IV RUE patent.
--- NOTE | 2018-07-11 19:17 | NUR ---
Received pt orally intubated with 7.5ETT~23cm at lip line, on Serrano vent with the following settings of AC-20, Vt-600, PEEP+5, FIO2-60%. No s/s of respiratory distress noted. Airway care done, pt responded to physical stimuli. In-line HHN tx with 2.5mg Albuterol+0.5mg Atrovent given, pt tolerated well. ETT moved to the left. Resus. bag at bedside. Vent and alarms checked and reset.
--- NOTE | 2018-07-11 20:00 | NUR ---
Temp 94.7 Paulo Hugger placed.
[2018-07-12] VITALS (23 sets, daily range): BP systolic 92–131; BP diastolic 50–81
[2018-07-12] MEDS: IV D5W 1000ML 1,000 ML IV PRN ×2 (03:08→16:32)
[2018-07-12 05:38] LABS: BASOPHILS % (AUTO) 0.7 % (0.0-2.0); EOSINOPHILS # (AUTO) 0.1 K/uL (0.0-0.7); EOSINOPHILS % (AUTO) 2.1 % (0.0-7.0); HEMATOCRIT 29.9 % (36.7-47.1); LYMPHOCYTES # (AUTO) 0.5 K/uL (20.0-40.0); LYMPHOCYTES % (AUTO) 9.7 % (20.5-51.5); MEAN CORPUSCULAR HEMOGLOBIN 31.9 uug (23.8-33.4); MEAN CORPUSCULAR HGB CONC 34 g/dL (32.5-36.3); MEAN CORPUSCULAR VOLUME 95.1 fL (73.0-96.2); MONOCYTES # (AUTO) 0.4 K/uL (2.0-10.0); MONOCYTES % (AUTO) 7.5 % (0.0-11.0); NEUTROPHILS # (AUTO) 4.3 K/uL (1.8-8.9); PLATELET COUNT (AUTO) 51 K/uL (152-348); RED BLOOD CELL COUNT(AUTO) 3.15 MIL/uL (4.06-5.63); WHITE BLOOD COUNT (AUTO) 5.3 K/uL (3.6-10.2)
[2018-07-12] MEDS: CHLORDIAZEPOXIDE HCL 25 MG CAPSULE PO SCH (05:39)
[2018-07-12] MEDS: PIPERACILLIN/TAZOBACTAM/D5W 3.375 G in PREMIXED 1 EACH IV SCH ×3 (05:39→21:28)
[2018-07-12] MEDS: PROPOFOL 100 ML IV PRN ×2 (05:41→11:25)
[2018-07-12 05:44] LABS: MAGNESIUM 2.1 mg/dL (1.8-2.4); PHOSPHOROUS 3.7 mg/dL (2.5-4.9); POTASSIUM 3.6 mmol/L (3.5-5.1)
[2018-07-12 06:27] LABS: BAND % (MANUAL) 1 % (0-10); BASOPHILS % (MANUAL) 1 % (0-2); LYMPHOCYTES % (MANUAL) 9 % (20-40); MONOCYTES % (MANUAL) 5 % (2-10); NEUTROPHILS % (MANUAL) 84 % (42-75)
--- NOTE | 2018-07-12 06:40 | NUR ---
PT RECEIVED ON LEONARDO VENT WITH CURRENT SETTINGS OF A/C 20, VT 600, PEEP +5, FIO2 60%. PT IS ORALLY INTUBATED WITH A 7.5 ETT APPROXIMATELY 23CM AT THE LIP LINE. PT SHOWING NO S/S OF RESPIRATORY DISTRESS AT THIS TIME. VENT ALARMS PARAMETERS CHECKED, ARE ON AND FUNCTIONING PROPERLY. PT GIVEN Q8 AND Q4 TX ORDERED BY MD. TOLERATED TX WELL. SUCTIONED SMALL AMOUNT OF THICK, BROWNISH SECRETIONS. HME CHANGED. ORAL CARE DONE. AMBU BAG IS AT BEDSIDE. VENT IS PLUGGED INTO RED EMERGENCY OUTLET. WILL CONTINUE TO MONITOR THROUGHOUT SHIFT. ABG ORDERED FOR 0800.
[2018-07-12] MEDS: ACETYLCYSTEINE 10% 4ML VIAL NEB SCH ×3 (06:44→19:12)
[2018-07-12] MEDS: IPRATROPIUM BROMIDE 0.5 MG/2.5 ML NEBU NEB SCH ×4 (06:44→19:12)
[2018-07-12] MEDS: ALBUTEROL SULFATE 2.5 MG/ 0.5 ML NEBU NEB SCH ×4 (06:44→19:13)
--- NOTE | 2018-07-12 07:30 | NUR ---
sbar report received from Nathaniel HARE. 59 yr old male was admitted on 07/04 for hepatic encephalopathy, ascites and esophageal varices. patient is orally intubated to vent tv 600, fio2 60% peep 5 and ac 20.patient is obtunded. despite low dose diprivan.ekg si sinus rhtyhm. d5w at 75 ml/hr.propofol drip at 5 mcg/kg/min. Addendum: 07/12/18 at 1351 by MONICO HADDAD RN Amended: Links added.
[2018-07-12] MEDS: BLOOD SUGAR DIAGNOSTIC 1 EACH STRIP VI SCH ×4 (07:34→21:26)
[2018-07-12 08:18] LABS: ABG BASE EXCESS 1.1 mmol/L; ABG PH 7.447 (7.350-7.450); ABG PO2 74.3 mmHg (75.0-100.0); ABG SITE LEFT BRACHIAL; ABG TOTAL HEMOGLOBIN 10.6 G/dL (13.5-18.0); COHb 0.8 % (0.5-1.5); MetHb 0.3 % (0.0-1.5); O2Hb 92.4 % (94.0-97.0); VENT MODE VENT - A/C; VT, ABG 600 mL
[2018-07-12] MEDS: HALOPERIDOL 0.5 MG TABLET NG SCH ×2 (09:03→17:23)
[2018-07-12] MEDS: PANTOPRAZOLE SODIUM 40 MG VIAL IV SCH ×2 (09:03→21:19)
[2018-07-12] MEDS: LACTULOSE 20 G/30 ML LIQUID UDC PO SCH ×3 (09:04→17:39)
[2018-07-12] MEDS: SPIRONOLACTONE 25 MG TABLET PO SCH (09:04)
--- NOTE | 2018-07-12 10:00 | NUR ---
seen by dr lara, and NELLA atwood. condition report given. orders received
--- NOTE | 2018-07-12 12:30 | NUR ---
temperature 94 Rectally. Paulo Butterfield initiated. Addendum: 07/12/18 at 1354 by MOINCO HADDAD RN Amended: Links added.
--- NOTE | 2018-07-12 15:00 | NUR ---
paracentesis done at the bedside./ 5200 ml total peritoneal fluid tdrained. specimen sent to lab
--- NOTE | 2018-07-12 16:00 | NUR ---
temperature remained low continued warming measures
[2018-07-12] MEDS: TWOCAL HN 1,000 ML LIQUID GT PRN (16:58)
[2018-07-12] MEDS: THIAMINE HCL 100 MG TABLET NG SCH (17:24)
[2018-07-12] MEDS: FOLIC ACID 1 MG TABLET NG SCH (17:24)
--- NOTE | 2018-07-12 19:30 | NUR ---
received patient in bed orally intubated on ac 16/600/60% +5 peep .hob , suction orally with minimal pinkish secretion moderate in amt and sedated propofol patient obtunded.propofol for 10 mcg/kg/min .TF in progress on HN AT 10 ML HR ,GOAL IS 40ML ,aspiration precaution observed . f/c to bedside drain and rectal tube in placed.will continue to monitor v/s and levels of comfort.
--- NOTE | 2018-07-12 19:33 | NUR ---
report given to Genaro RN Addendum: 07/12/18 at 1933 by MONICO HADDAD RN Amended: Links added.
--- NOTE | 2018-07-12 20:00 | NUR ---
placed patient on contact isolation + ecoli urine and mrsa wound right foot .
[2018-07-12] MEDS: CHLORDIAZEPOXIDE HCL 25 MG CAPSULE NG SCH (21:20)
--- NOTE | 2018-07-12 22:00 | NUR ---
turned and reposition patient ,changed soiled linens and gown skin care done and offloaded back elevated upper and lower extremities .removed Malik murray temp 98.2 axiliary.
[2018-07-13] VITALS (66 sets, daily range): BP systolic 82–147; BP diastolic 47–81
[2018-07-13] MEDS: IV NORMAL SALINE 250 ML IV PRN (00:22)
[2018-07-13] MEDS: PROPOFOL 100 ML IV PRN ×2 (01:03→16:22)
--- NOTE | 2018-07-13 04:00 | NUR ---
irrigated f/c unable with resistance replaced f/c and done aseptically .placed no .16 f.
[2018-07-13 05:09] LABS: BASOPHILS # (AUTO) 0.1 K/uL (0.0-8.0); HEMOGLOBIN 9.8 g/dL (12.5-16.3); MONOCYTES # (AUTO) 0.4 K/uL (2.0-10.0)
[2018-07-13 05:13] LABS: EOSINOPHILS # (AUTO) 0.3 K/uL (0.0-0.7); EOSINOPHILS % (AUTO) 5.3 % (0.0-7.0); HEMATOCRIT 29.2 % (36.7-47.1); LYMPHOCYTES # (AUTO) 0.6 K/uL (20.0-40.0); LYMPHOCYTES % (AUTO) 12.1 % (20.5-51.5); MEAN CORPUSCULAR HEMOGLOBIN 31.9 uug (23.8-33.4); MEAN CORPUSCULAR HGB CONC 34 g/dL (32.5-36.3); NEUTROPHILS # (AUTO) 3.9 K/uL (1.8-8.9); NEUTROPHILS % (AUTO) 73.6 % (38.5-71.5); RED BLOOD CELL COUNT(AUTO) 3.07 MIL/uL (4.06-5.63); WHITE BLOOD COUNT (AUTO) 5.3 K/uL (3.6-10.2)
[2018-07-13 05:19] LABS: PLATELET COUNT (AUTO) 46 K/uL (152-348)
[2018-07-13 05:20] LABS: CREATININE 0.9 mg/dL (0.6-1.3); MAGNESIUM 1.9 mg/dL (1.8-2.4); PHOSPHOROUS 3.5 mg/dL (2.5-4.9); POTASSIUM 3.6 mmol/L (3.5-5.1)
[2018-07-13 05:23] LABS: BASOPHILS % (MANUAL) 1 % (0-2); EOSINOPHILS % (MANUAL) 4 % (0-8); LYMPHOCYTES % (MANUAL) 13 % (20-40); MONOCYTES % (MANUAL) 7 % (2-10); NEUTROPHILS % (MANUAL) 75 % (42-75)
[2018-07-13] MEDS: PIPERACILLIN/TAZOBACTAM/D5W 3.375 G in PREMIXED 1 EACH IV SCH ×3 (06:24→21:32)
[2018-07-13] MEDS: BLOOD SUGAR DIAGNOSTIC 1 EACH STRIP VI SCH ×4 (06:30→23:38)
[2018-07-13] MEDS: IV D5W 1000ML 1,000 ML IV PRN ×2 (06:40→16:53)
--- NOTE | 2018-07-13 07:00 | NUR ---
levophed drip started for hypotension [id number] today. kelly at55/min propofoll off this time.patient remains obtunded Addendum: 07/13/18 at 0807 by MONICO HADDAD RN Amended: Links added.
[2018-07-13] MEDS: ALBUTEROL SULFATE 2.5 MG/ 0.5 ML NEBU NEB SCH ×4 (07:23→19:36)
[2018-07-13] MEDS: IPRATROPIUM BROMIDE 0.5 MG/2.5 ML NEBU NEB SCH ×4 (07:23→19:36)
[2018-07-13] MEDS: ACETYLCYSTEINE 10% 4ML VIAL NEB SCH ×3 (07:24→23:08)
--- NOTE | 2018-07-13 07:30 | NUR ---
report received from Genaro HARE.at report patient hemodynamically unstabel . is bradycardic with hypotensio. Addendum: 07/13/18 at 1044 by MONICO HADDAD RN Amended: Links added.
[2018-07-13 08:37] LABS: ABG BASE EXCESS 1.6 mmol/L; ABG HCO3 25.7 mmol/L; ABG PCO2 38.3 mmHg (35.0-45.0); ABG PH 7.444 (7.350-7.450); ABG PO2 73.3 mmHg (75.0-100.0); ABG SITE RIGHT RADIAL; ABG TOTAL HEMOGLOBIN 10.5 G/dL (13.5-18.0); COHb 1.1 % (0.5-1.5); MetHb 0.3 % (0.0-1.5); O2Hb 91.7 % (94.0-97.0); VENT MODE VENT - A/C; VT, ABG 600 mL
[2018-07-13] MEDS: LACTULOSE 20 G/30 ML LIQUID UDC PO SCH ×3 (09:25→17:30)
[2018-07-13] MEDS: HALOPERIDOL 0.5 MG TABLET NG SCH ×2 (09:25→17:30)
[2018-07-13] MEDS: SPIRONOLACTONE 25 MG TABLET PO SCH (09:25)
[2018-07-13] MEDS: PANTOPRAZOLE SODIUM 40 MG VIAL IV SCH ×2 (09:25→21:33)
--- NOTE | 2018-07-13 10:00 | NUR ---
TUBE FDG RESUMED 2 ramiro hn at 30 ml/hr via ngt. is having liquid stools. rectal tube in place.
[2018-07-13] MEDS: TWOCAL HN 1,000 ML LIQUID GT PRN ×2 (10:18→10:21)
[2018-07-13] MEDS: CHLORDIAZEPOXIDE HCL 25 MG CAPSULE NG SCH ×2 (10:59→21:32)
--- NOTE | 2018-07-13 11:00 | NUR ---
seen by dr lara and NELLA Haider . orders received.
--- NOTE | 2018-07-13 16:00 | NUR ---
left forearm IV site infiltrated. pICC line insertion ordered. midline is being used for levophed and main IV fluid. right forearm IV line is designated for TKO and antibiotics.
--- NOTE | 2018-07-13 17:21 | NUR ---
RECEIVED PT WITH UNSTABLE BP. IT WAS HOWEVER STABILIZED TOWARDS THE MIDDLE OF THE DAY. ORAL CARE GIVEN AND MOVED ET TUBE TOWARDS THE MIDDLE OF THE LEFT LIP. ABG DRAWN WITH RESULT GIVEN TO ANANYA MARC. NO NEW ORDERS RECEIVED.
[2018-07-13] MEDS: FOLIC ACID 1 MG TABLET NG SCH (17:30)
[2018-07-13] MEDS: THIAMINE HCL 100 MG TABLET NG SCH (17:30)
--- NOTE | 2018-07-13 19:37 | NUR ---
Patient received orally intubated on Serrano ventilator with prescribed settings of AC 16, Vt 600, +5peep, 60%fiO2. He is intubated with a 7.5 ETtube, ~23cm addie: MOV used for cuff assessment/inflation. No signs/symptoms of respiratory distress noted at this time. Inline treatments administered as ordered and tolerated well. Suctioned small amounts of thick yellow and brownish secretions. Oral care rendered. Will continue to monitor throughout shift.
--- NOTE | 2018-07-13 22:00 | NUR ---
NRG 200 ml; returned & held TF. 0400 ditto.
[2018-07-14] VITALS (19 sets, daily range): BP systolic 102–132; BP diastolic 49–71
[2018-07-14] MEDS: PROPOFOL 100 ML IV PRN ×2 (04:37→20:50)
[2018-07-14 05:06] LABS: EOSINOPHILS # (AUTO) 0.3 K/uL (0.0-0.7); LYMPHOCYTES # (AUTO) 0.8 K/uL (20.0-40.0); MEAN CORPUSCULAR VOLUME 94.4 fL (73.0-96.2); MONOCYTES # (AUTO) 0.5 K/uL (2.0-10.0)
[2018-07-14 05:07] LABS: BASOPHILS # (AUTO) 0.1 K/uL (0.0-8.0); BASOPHILS % (AUTO) 0.9 % (0.0-2.0); EOSINOPHILS % (AUTO) 4.2 % (0.0-7.0); HEMATOCRIT 26.3 % (36.7-47.1); LYMPHOCYTES % (AUTO) 12.1 % (20.5-51.5); MEAN CORPUSCULAR HEMOGLOBIN 32.1 uug (23.8-33.4); MEAN CORPUSCULAR HGB CONC 34 g/dL (32.5-36.3); MONOCYTES % (AUTO) 8.3 % (0.0-11.0); NEUTROPHILS # (AUTO) 4.9 K/uL (1.8-8.9); NEUTROPHILS % (AUTO) 74.5 % (38.5-71.5); RED BLOOD CELL COUNT(AUTO) 2.79 MIL/uL (4.06-5.63); WHITE BLOOD COUNT (AUTO) 6.6 K/uL (3.6-10.2)
[2018-07-14] MEDS: IV D5W 1000ML 1,000 ML IV PRN ×2 (05:12→17:42)
[2018-07-14 05:13] LABS: *BLOOD, URINE 2+ (NEGATIVE); *CLARITY,URINE SLIGHTLY CLOUDY (CLEAR); *COLOR,URINE YELLOW (YELLOW); *KETONES,URINE TRACE (NEGATIVE); *UROBILINOGEN,URINE 0.2 E.U./dl (NORMAL); LEUKOCYTE ESTERASE ,URINE NEGATIVE (NEGATIVE); NITRITE, URINE NEGATIVE (NEGATIVE); PH,URINE 5.5 (5.0-8.0); UGLUCOSE NEGATIVE (NEGATIVE)
[2018-07-14 05:17] LABS: *BILIRUBIN,URIN 1+ (NEGATIVE)
[2018-07-14] MEDS: PIPERACILLIN/TAZOBACTAM/D5W 3.375 G in PREMIXED 1 EACH IV SCH ×3 (05:18→21:20)
[2018-07-14 05:21] LABS: BACTERIA,URINE NONE SEEN /HPF (NONE SEEN); MUCUS,URINE FEW /LPF (0-FEW); SQUAMOUS EPITHELIAL CELL,UR FEW /HPF (NONE SEEN)
[2018-07-14 05:38] LABS: PLATELET COUNT (AUTO) 46 K/uL (152-348)
[2018-07-14 05:44] LABS: MAGNESIUM 1.8 mg/dL (1.8-2.4); PHOSPHOROUS 3.5 mg/dL (2.5-4.9); POTASSIUM 3.5 mmol/L (3.5-5.1)
[2018-07-14] MEDS: ACETYLCYSTEINE 10% 4ML VIAL NEB SCH ×3 (07:46→19:15)
[2018-07-14] MEDS: ALBUTEROL SULFATE 2.5 MG/ 0.5 ML NEBU NEB SCH ×4 (07:46→19:14)
[2018-07-14] MEDS: IPRATROPIUM BROMIDE 0.5 MG/2.5 ML NEBU NEB SCH ×4 (07:46→19:14)
[2018-07-14 08:42] LABS: ABG BASE EXCESS 1.4 mmol/L; ABG HCO3 25.6 mmol/L; ABG PCO2 38.8 mmHg (35.0-45.0); ABG PH 7.437 (7.350-7.450); ABG PO2 75.5 mmHg (75.0-100.0); ABG SITE RIGHT RADIAL; ABG TOTAL HEMOGLOBIN 9.6 G/dL (13.5-18.0); COHb 1.7 % (0.5-1.5); VENT MODE VENT - A/C 16; VT, ABG 600 mL
--- NOTE | 2018-07-14 09:00 | NUR ---
DR. CALHOUN IN THE UNIT TO SEE PATIENT.
[2018-07-14] MEDS: BLOOD SUGAR DIAGNOSTIC 1 EACH STRIP VI SCH ×4 (09:31→20:50)
[2018-07-14] MEDS ORDERED: POTASSIUM CHLORIDE 20 MEQ POWDER PACKET GT ONE (09:45)
[2018-07-14] MEDS: PANTOPRAZOLE SODIUM 40 MG VIAL IV SCH ×2 (09:53→20:26)
[2018-07-14] MEDS: SPIRONOLACTONE 25 MG TABLET PO SCH (09:53)
[2018-07-14] MEDS: HALOPERIDOL 0.5 MG TABLET NG SCH ×2 (09:54→17:30)
[2018-07-14] MEDS: CHLORDIAZEPOXIDE HCL 25 MG CAPSULE NG SCH (09:54)
[2018-07-14] MEDS: LACTULOSE 20 G/30 ML LIQUID UDC PO SCH ×3 (09:54→17:31)
--- NOTE | 2018-07-14 17:00 | NUR ---
DOCTOR HALEIGH IN THE UNIT. OK TO DC LIBRIUM AND HALDOL WHILE INTUBATED. INFORMED THE NOT TOLERATING TUBE FEEDING. HIGH RESIDUALS AND WHEN LYING FLAT OR SUCTIONING TUBE FEEDING COMES OUT OF MOUTH. OK TO HOLD TUBE FEEDING FOR NOW.
[2018-07-14] MEDS: FOLIC ACID 1 MG TABLET NG SCH (19:16)
[2018-07-14] MEDS: THIAMINE HCL 100 MG TABLET NG SCH (19:16)
--- NOTE | 2018-07-14 19:22 | NUR ---
Pt rec'd on Serrano settings AC 16, VT 600, PEEP +5 and FIO2-60%. No resp. distress noted. Pt to be monitored throughout the shift, PRN SX and adm'd resp neb tx's per MD orders. 7.5 ETT is patent and secure at approx. 23cm now at right side of the pt's mouth. Serrano alarm parameters have been checked and remain audible. BVM is at bedside.
[2018-07-15] VITALS (24 sets, daily range): BP systolic 95–132; BP diastolic 43–68
--- NOTE | 2018-07-15 00:01 | NUR ---
Paulo Butterfield / jay 94.7 oral.
[2018-07-15] MEDS: IV NORMAL SALINE 250 ML IV PRN (04:16)
[2018-07-15] MEDS: PIPERACILLIN/TAZOBACTAM/D5W 3.375 G in PREMIXED 1 EACH IV SCH ×3 (05:38→21:27)
[2018-07-15 05:40] LABS: EOSINOPHILS # (AUTO) 0.3 K/uL (0.0-0.7); HEMOGLOBIN 8.9 g/dL (12.5-16.3); MONOCYTES # (AUTO) 0.4 K/uL (2.0-10.0)
[2018-07-15 05:41] LABS: EOSINOPHILS % (AUTO) 5.2 % (0.0-7.0); HEMATOCRIT 26.2 % (36.7-47.1); LYMPHOCYTES # (AUTO) 0.8 K/uL (20.0-40.0); LYMPHOCYTES % (AUTO) 16.6 % (20.5-51.5); MEAN CORPUSCULAR HGB CONC 34 g/dL (32.5-36.3); MEAN CORPUSCULAR VOLUME 94.4 fL (73.0-96.2); MONOCYTES % (AUTO) 8.3 % (0.0-11.0); NEUTROPHILS # (AUTO) 3.5 K/uL (1.8-8.9); NEUTROPHILS % (AUTO) 68.9 % (38.5-71.5); RED BLOOD CELL COUNT(AUTO) 2.77 MIL/uL (4.06-5.63); WHITE BLOOD COUNT (AUTO) 5.1 K/uL (3.6-10.2)
[2018-07-15 05:46] LABS: BILIRUBIN,TOTAL 1.3 mg/dL (0.2-1.0); CREATININE 0.9 mg/dL (0.6-1.3); PHOSPHOROUS 3.6 mg/dL (2.5-4.9); POTASSIUM 3.7 mmol/L (3.5-5.1); TOTAL PROTEIN, SERUM 4.8 g/dL (6.4-8.2)
[2018-07-15 05:53] LABS: PLATELET COUNT (AUTO) 44 K/uL (152-348)
--- NOTE | 2018-07-15 07:05 | NUR ---
Pt received in semi fowlers, on continuous mechanical ventilation via 7.5 ETT secured at 23cm lip line. Pt is on Serrano vent with ordered settings of A/C-16, VT-600, PEEP+5, FIO2-60% Tolerating vent settings well. SpO2-100% ETT secured with AnchorFast device. AnchorFast replaced after pt was shaved. Good skin integrity noted to area of application. ETT moved periodically alternating sides of mouth, per hospital policy. Sxn'd and lavaged as needed. Sxn'd small amounts of thick white/yellowish secretions. Pt bleeding orally, RN aware. Oral care done. HME changed. In-line nebulizer treatments administered as ordered, and tolerated well. No adverse reactions noted. Bag/valve/mask at bedside. Vent plugged into red emergency outlet. Will continue to monitor.
[2018-07-15] MEDS: IPRATROPIUM BROMIDE 0.5 MG/2.5 ML NEBU NEB SCH ×4 (07:07→19:17)
[2018-07-15] MEDS: ALBUTEROL SULFATE 2.5 MG/ 0.5 ML NEBU NEB SCH ×4 (07:07→19:17)
[2018-07-15] MEDS: ACETYLCYSTEINE 10% 4ML VIAL NEB SCH ×3 (07:07→19:17)
[2018-07-15 07:42] LABS: EOSINOPHILS % (MANUAL) 2 % (0-8); LYMPHOCYTES % (MANUAL) 20 % (20-40); MONOCYTES % (MANUAL) 8 % (2-10); NEUTROPHILS % (MANUAL) 70 % (42-75)
[2018-07-15] MEDS: IV D5W 1000ML 1,000 ML IV PRN ×2 (07:57→21:28)
[2018-07-15 08:05] LABS: ABG BASE EXCESS 0.6 mmol/L; ABG HCO3 24.4 mmol/L; ABG PCO2 35.8 mmHg (35.0-45.0); ABG PH 7.452 (7.350-7.450); ABG PO2 78.9 mmHg (75.0-100.0); ABG SITE LEFT RADIAL; ABG TOTAL HEMOGLOBIN 8.9 G/dL (13.5-18.0); MetHb 0.3 % (0.0-1.5); O2Hb 91.9 % (94.0-97.0); VENT MODE VENT - A/C; VT, ABG 600 mL
[2018-07-15] MEDS: BLOOD SUGAR DIAGNOSTIC 1 EACH STRIP VI SCH ×4 (08:05→20:21)
[2018-07-15] MEDS: PANTOPRAZOLE SODIUM 40 MG VIAL IV SCH ×2 (10:06→20:15)
[2018-07-15] MEDS: SPIRONOLACTONE 25 MG TABLET PO SCH (10:06)
[2018-07-15] MEDS: LACTULOSE 20 G/30 ML LIQUID UDC PO SCH ×2 (10:06→14:49)
--- NOTE | 2018-07-15 13:00 | NUR ---
DOCTOR TREVIZO IN THE UNIT TO SEE PATIENT. NEW ORDERS PLACED IN COMPUTER.
--- NOTE | 2018-07-15 14:00 | NUR ---
INSERTED NGT 10CM PER CXR. AT 80CM
[2018-07-15] MEDS: PROPOFOL 100 ML IV PRN (14:52)
--- NOTE | 2018-07-15 15:00 | NUR ---
INFORMED DOCTOR HALEIGH OF AMMONIA LEVEL NORMALIZED. DECREASE LACTULOSE TO 20G TID. ORDERED PLACED IN THE COMPUTER
[2018-07-15] MEDS ORDERED: LACTULOSE 20 G/30 ML LIQUID UDC PO SCH (17:00)
[2018-07-15] MEDS: LACTULOSE 20 G/30 ML LIQUID UDC NG SCH (18:41)
[2018-07-15] MEDS: FOLIC ACID 1 MG TABLET NG SCH (18:41)
[2018-07-15] MEDS: THIAMINE HCL 100 MG TABLET NG SCH (18:42)
--- NOTE | 2018-07-15 19:30 | NUR ---
patient in bed orally intubated tolerating vent settings , satuation 100% rr 16 minimal secretions .sedated on propofol 10 mcg/kg/min, patient very sedated decrease sedation will monitor , hob up .off TF ngt clamp .f/c to bsd .rectal tube in placed .low temp 95.9 rectally on ree huuger high temp 43 centigrade ,will continue to monitor v/s and levels of sedation.
--- NOTE | 2018-07-15 19:59 | NUR ---
Pt received on Serrano settings AC 16, VT 600, PEEP +5 and FIO2-60%. No resp. distress noted. Pt to be monitored throughout the shift, PRN SX and adm'd resp neb tx's per MD orders. 7.5 ETT is patent and secure at approx. 23cm now at the center of the pt's mouth. Serrano alarm parameters have been checked and remain audible. BVM is at bedside.
--- NOTE | 2018-07-15 20:30 | NUR ---
DR:jai came and saw patient updated with patients condition .plan trach and peg md will talk with lazara lara
--- NOTE | 2018-07-15 23:00 | NUR ---
turned and reposition patient this time patient open eyes spontaneously,moved head from side to side but doesn't follow commands ,moved bilateral hands and lower legs very weak but doesn't squeezed , pupils sluggishly reactive 3 ,started back on sedation propofol at 5 mcg/kg /min .temperature 96 degrees reduced Malik hugger to moderated settings 38 centigrade,continue to monitor v/s and levels of sedation and pain .
[2018-07-16] VITALS (23 sets, daily range): BP systolic 93–126; BP diastolic 48–68
--- NOTE | 2018-07-16 04:30 | NUR ---
am care done ,bath patient skin care done ,oral care.changed soiled linens and gown f/c done.v/s wnl and no s/s of pain .
[2018-07-16 05:17] LABS: BASOPHILS # (AUTO) 0.1 K/uL (0.0-8.0); BASOPHILS % (AUTO) 1.4 % (0.0-2.0); EOSINOPHILS # (AUTO) 0.3 K/uL (0.0-0.7); EOSINOPHILS % (AUTO) 4.7 % (0.0-7.0); HEMATOCRIT 27.5 % (36.7-47.1); HEMOGLOBIN 9.3 g/dL (12.5-16.3); LYMPHOCYTES # (AUTO) 0.9 K/uL (20.0-40.0); LYMPHOCYTES % (AUTO) 15.7 % (20.5-51.5); MEAN CORPUSCULAR HEMOGLOBIN 31.7 uug (23.8-33.4); MEAN CORPUSCULAR HGB CONC 34 g/dL (32.5-36.3); MEAN CORPUSCULAR VOLUME 94.1 fL (73.0-96.2); MONOCYTES # (AUTO) 0.5 K/uL (2.0-10.0); MONOCYTES % (AUTO) 7.8 % (0.0-11.0); NEUTROPHILS # (AUTO) 4.2 K/uL (1.8-8.9); NEUTROPHILS % (AUTO) 70.4 % (38.5-71.5); RED BLOOD CELL COUNT(AUTO) 2.92 MIL/uL (4.06-5.63); WHITE BLOOD COUNT (AUTO) 5.9 K/uL (3.6-10.2)
[2018-07-16] MEDS: PIPERACILLIN/TAZOBACTAM/D5W 3.375 G in PREMIXED 1 EACH IV SCH ×3 (05:26→22:07)
[2018-07-16 05:28] LABS: BILIRUBIN,TOTAL 1.4 mg/dL (0.2-1.0); MAGNESIUM 1.7 mg/dL (1.8-2.4); PHOSPHOROUS 3.7 mg/dL (2.5-4.9); POTASSIUM 3.9 mmol/L (3.5-5.1); TOTAL PROTEIN, SERUM 5.3 g/dL (6.4-8.2)
[2018-07-16 05:41] LABS: PLATELET COUNT (AUTO) 57 K/uL (152-348)
[2018-07-16] MEDS: ACETYLCYSTEINE 10% 4ML VIAL NEB SCH ×3 (07:30→23:02)
[2018-07-16] MEDS: ALBUTEROL SULFATE 2.5 MG/ 0.5 ML NEBU NEB SCH ×4 (07:30→23:02)
[2018-07-16] MEDS: IPRATROPIUM BROMIDE 0.5 MG/2.5 ML NEBU NEB SCH ×4 (07:30→23:02)
--- NOTE | 2018-07-16 07:30 | NUR ---
PT REC'G ON LEONARDO VENT WITH SETTING AC20, VT 600, FIO2 60%. PEEP+5, 7.5 ETT SECURED WITH ANCHOR FAST AT 23CM AT LIP. TX'S TO BE GIVEN Q4WA. PT AT THIS TIME IS TOLERATING VENT SETTINGS WELL WITH NOT DISTRESS NOTED. VENT ALARMS AUDIBLE, CHECKED AND RESET. WILL CONTINUE TO MONITOR
--- NOTE | 2018-07-16 07:30 | NUR ---
report received from Genaro HARE. 59 yr old male was admitted on 07/04/18. had been orally intubated since 07/09/18. central lines and holloway and ngt intact.on proppofol drip, d5w at 75ml/hr, and a tko nS for IV antibiotics. ekg is sinus rhythm. has a rectal tube for diarrhea Addendum: 07/16/18 at 0944 by MONICO HADDAD RN Amended: Links added.
[2018-07-16 08:06] LABS: HEPATITIS B SURFACE AB Non Reactive (.)
[2018-07-16] MEDS: PROPOFOL 100 ML IV PRN ×2 (08:40→18:19)
[2018-07-16] MEDS: BLOOD SUGAR DIAGNOSTIC 1 EACH STRIP VI SCH ×3 (08:50→16:18)
[2018-07-16 09:05] LABS: ABG BASE EXCESS 2.2 mmol/L; ABG HCO3 26.7 mmol/L; ABG PCO2 41.1 mmHg (35.0-45.0); ABG PO2 83.1 mmHg (75.0-100.0); ABG SITE LEFT RADIAL; ABG TOTAL HEMOGLOBIN 9.6 G/dL (13.5-18.0); COHb 1.2 % (0.5-1.5); MetHb 0.1 % (0.0-1.5); O2Hb 93.8 % (94.0-97.0); VENT MODE VENT - A/C 16; VT, ABG 600 mL
[2018-07-16] MEDS: PANTOPRAZOLE SODIUM 40 MG VIAL IV SCH ×2 (09:08→21:13)
[2018-07-16] MEDS: LACTULOSE 20 G/30 ML LIQUID UDC NG SCH ×3 (09:10→18:18)
[2018-07-16] MEDS: SPIRONOLACTONE 25 MG TABLET PO SCH (09:10)
--- NOTE | 2018-07-16 11:25 | NUR ---
titrated down to 50%fio2 but desaturated. placed back on 55%n then to 60%. Dr Cooper here, made aware of patient's current respiratory condition. orders received Addendum: 07/16/18 at 1125 by MONICO HADDAD RN Amended: Links added.
[2018-07-16 13:50] LABS: BAND % (MANUAL) 7 % (0-10); BASOPHILS % (MANUAL) 2 % (0-2); EOSINOPHILS % (MANUAL) 7 % (0-8); LYMPHOCYTES % (MANUAL) 6 % (20-40); MONOCYTES % (MANUAL) 8 % (2-10); NEUTROPHILS % (MANUAL) 70 % (42-75)
--- NOTE | 2018-07-16 14:20 | NUR ---
jluis 100/no coverage Addendum: 07/16/18 at 1420 by MONICO HADDAD RN Amended: Aliza horton. Addendum: 07/16/18 at 1422 by MONICO HADDAD RN Amended: Aliza horton.
--- NOTE | 2018-07-16 14:21 | NUR ---
tamperature 93.3/rectally. Paulo Butterfield applied over the patient. Addendum: 07/16/18 at 1422 by MONICO HADDAD RN Amended: Links added.
--- NOTE | 2018-07-16 16:19 | NUR ---
[id number] /no coverage Addendum: 07/16/18 at 1619 by MONICO HADDAD RN Amended: Aliza horton. Addendum: 07/16/18 at 1620 by MONICO HADDAD RN Amended: Aliza horton.
--- NOTE | 2018-07-16 16:20 | NUR ---
[id number] /no coverage Addendum: 07/16/18 at 1620 by MONICO HADDAD RN Amended: Links added.
[2018-07-16] MEDS: MAGNESIUM SULFATE/D5W 100 ML IV SCH ×2 (16:22→17:18)
--- NOTE | 2018-07-16 16:32 | NUR ---
MAGNESIUM 1.7 /covered with magnesium 2 gms over 2 hrs via right upper arm midline. Addendum: 07/16/18 at 1632 by MONICO HADDAD RN Amended: Links added. Addendum: 07/16/18 at 1634 by MONICO HADDAD RN Amended: Links added.
--- NOTE | 2018-07-16 16:33 | NUR ---
seen by ID. Josiah aware of patient's yeast in the urine. orders received Addendum: 07/16/18 at 1634 by MONICO HADDAD RN Amended: Links added.
--- NOTE | 2018-07-16 16:45 | NUR ---
seen by dr Reid. aware of patient's current condition including high Vitamin b12, need for trach and PEG. Addendum: 07/16/18 at 1645 by MONICO HADDAD RN Amended: Links added. Addendum: 07/16/18 at 1650 by MONICO HADDAD RN Amended: Links added.
--- NOTE | 2018-07-16 16:50 | NUR ---
temperature now 97.7. layla son for mow Addendum: 07/16/18 at 1650 by MONICO HADDAD RN Amended: Links added.
--- NOTE | 2018-07-16 18:00 | NUR ---
complete pm care done including wound care. right wrist has a dried scab. dressing applied . has de[endent edema, arms scrotum. legs and back side.also left side lower abdomen paracentesis site, oozing with yellowish fluid.dressing applied Addendum: 07/16/18 at 1859 by MONICO HADDAD RN Amended: Links added.
[2018-07-16] MEDS: FLUCONAZOLE 200 MG/NS 100ML IV 100 MG in PREMIXED 1 EACH IV SCH (18:10)
[2018-07-16] MEDS: IV NORMAL SALINE 250 ML IV PRN (18:10)
[2018-07-16] MEDS: FOLIC ACID 1 MG TABLET NG SCH (18:19)
[2018-07-16] MEDS: THIAMINE HCL 100 MG TABLET NG SCH (18:19)
[2018-07-16] MEDS ORDERED: DEXTROSE 50% 50 ML DISP.SYRIN IV PRN (19:30)
--- NOTE | 2018-07-16 19:48 | NUR ---
PT RECEIVED ORALLY INTUBATED WITH A SIZE 7.5 ETT SECURED WITH ANCHOR-FAST APPROX. 23 CM AT THE LIP. PT IS ON A LEONARDO VENT ON CMV ON SETTINGS OF A/C 16, VT 600, +5 PEEP, AND 60% FIO2. VENT PARAMETERS AND ALARMS CHECKED, ALARMS ARE AUDIBLE. PT IS SEDATED, UNRESPONSIVE TO STIMULI. ORAL SUCTIONED A MODERATE AMOUNT OF BLOODY SECRETIONS. PT IS TOLERATING VENT SETTINGS WELL, NO RESP. DISTRESS NOTED. ALBUTEROL AND ATROVENT TO BE GIVEN WITH MUCOMYST. AMBU-BAG AT BEDSIDE. VENT PLUGGED INTO RED OUTLET. SUCTION PRN. WILL CONTINUE TO MONITOR.
[2018-07-17] VITALS (24 sets, daily range): BP systolic 98–129; BP diastolic 50–76
[2018-07-17] MEDS: BLOOD SUGAR DIAGNOSTIC 1 EACH STRIP VI SCH ×4 (00:14→17:29)
[2018-07-17] MEDS: IV D5W 1000ML 1,000 ML IV PRN ×2 (00:17→13:57)
[2018-07-17] MEDS: PROPOFOL 100 ML IV PRN ×2 (01:41→22:27)
--- NOTE | 2018-07-17 03:30 | NUR ---
remained intubated, on Propofol drip sedation vacation done, no response noted to suctioning , no gag or cough reflex noted; kept on Propofol @ 10 mcg/kg/min, O2 sat 97-99%, respiration regular, no movements of both upper and lower ext noted. kept NPO , TF held abd soft; rectal tube in place large amt liquid yellow stools. oliguric and holloway in place. Accucheck 90 no coverage.
[2018-07-17 04:21] LABS: BASOPHILS % (AUTO) 0.8 % (0.0-2.0); EOSINOPHILS # (AUTO) 0.3 K/uL (0.0-0.7); EOSINOPHILS % (AUTO) 6.7 % (0.0-7.0); HEMATOCRIT 25.6 % (36.7-47.1); HEMOGLOBIN 8.7 g/dL (12.5-16.3); LYMPHOCYTES % (AUTO) 22.5 % (20.5-51.5); MEAN CORPUSCULAR HEMOGLOBIN 31.8 uug (23.8-33.4); MEAN CORPUSCULAR HGB CONC 34 g/dL (32.5-36.3); MEAN CORPUSCULAR VOLUME 93.4 fL (73.0-96.2); MONOCYTES # (AUTO) 0.4 K/uL (2.0-10.0); MONOCYTES % (AUTO) 8.8 % (0.0-11.0); NEUTROPHILS # (AUTO) 2.7 K/uL (1.8-8.9); NEUTROPHILS % (AUTO) 61.2 % (38.5-71.5); RED BLOOD CELL COUNT(AUTO) 2.74 MIL/uL (4.06-5.63); WHITE BLOOD COUNT (AUTO) 4.5 K/uL (3.6-10.2)
[2018-07-17 04:25] LABS: PLATELET COUNT (AUTO) 48 K/uL (152-348)
[2018-07-17 04:46] LABS: BILIRUBIN,TOTAL 1.1 mg/dL (0.2-1.0); CREATININE 0.9 mg/dL (0.6-1.3); MAGNESIUM 1.8 mg/dL (1.8-2.4); PHOSPHOROUS 3.2 mg/dL (2.5-4.9); POTASSIUM 3.4 mmol/L (3.5-5.1); TOTAL PROTEIN, SERUM 5.2 g/dL (6.4-8.2)
[2018-07-17] MEDS: PIPERACILLIN/TAZOBACTAM/D5W 3.375 G in PREMIXED 1 EACH IV SCH ×3 (06:14→21:43)
--- NOTE | 2018-07-17 07:20 | NUR ---
Pt received in semi fowlers, on continuous mechanical ventilation via 7.5 ETT secured at 23cm lip line. Pt is on Serrano vent with ordered settings of A/C-16, VT-600, PEEP+5, FIO2-60% Tolerating vent settings well. SpO2-96% ETT secured with AnchorFast device. Good skin integrity noted to area of application. ETT moved periodically alternating sides of mouth, per hospital policy. Pt has oral bleeding, and does not have a cough reflex, RN David aware. Sxn'd and lavaged as needed. Sxn'd small amounts of thick white/yellowish secretions. Oral care done. HME changed. In-line nebulizer treatments administered as ordered, and tolerated well. No adverse reactions noted. Bag/valve/mask at bedside. Vent plugged into red emergency outlet. ABG drawn, results reported, no changes ordered. Will continue to monitor.
[2018-07-17] MEDS: ACETYLCYSTEINE 10% 4ML VIAL NEB SCH ×3 (07:28→19:55)
[2018-07-17] MEDS: ALBUTEROL SULFATE 2.5 MG/ 0.5 ML NEBU NEB SCH ×4 (07:28→19:53)
[2018-07-17] MEDS: IPRATROPIUM BROMIDE 0.5 MG/2.5 ML NEBU NEB SCH ×4 (07:28→19:53)
[2018-07-17] MEDS: SPIRONOLACTONE 25 MG TABLET PO SCH (08:05)
[2018-07-17] MEDS: LACTULOSE 20 G/30 ML LIQUID UDC NG SCH ×3 (08:05→17:26)
[2018-07-17] MEDS: PANTOPRAZOLE SODIUM 40 MG VIAL IV SCH ×2 (08:06→20:50)
[2018-07-17 08:49] LABS: ABG BASE EXCESS 2.1 mmol/L; ABG HCO3 25.7 mmol/L; ABG PCO2 35.7 mmHg (35.0-45.0); ABG PH 7.475 (7.350-7.450); ABG PO2 77.7 mmHg (75.0-100.0); ABG SITE LEFT RADIAL; ABG TOTAL HEMOGLOBIN 9.2 G/dL (13.5-18.0); COHb 1.4 % (0.5-1.5); MetHb 0.1 % (0.0-1.5); VENT MODE VENT - A/C; VT, ABG 600 mL
--- NOTE | 2018-07-17 09:00 | NUR ---
Patient propofol turned off and patient awakens, and eyes tracking when entering the room. David Gardner RN
[2018-07-17] MEDS: POTASSIUM CHLORIDE 50 ML IV SCH ×2 (11:48→13:23)
--- NOTE | 2018-07-17 12:00 | NUR ---
Patient BS 96, and no insulin necessary per sliding scale per do. David Gardner RN
[2018-07-17] MEDS: INSULIN REGULAR, HUMAN 300 UNIT/3 ML VIAL SQ PRN ×2 (12:06→17:29)
[2018-07-17] MEDS: TWOCAL HN 1,000 ML LIQUID NG PRN (14:42)
[2018-07-17] MEDS: FLUCONAZOLE 200 MG/NS 100ML IV 100 MG in PREMIXED 1 EACH IV SCH (17:28)
--- NOTE | 2018-07-17 18:00 | NUR ---
Patient BS 89, and no insulin coverage necessary per do. David aGrdner RN
[2018-07-17] MEDS: FOLIC ACID 1 MG TABLET NG SCH (18:04)
[2018-07-17] MEDS: THIAMINE HCL 100 MG TABLET NG SCH (18:04)
[2018-07-18] VITALS (22 sets, daily range): BP systolic 96–118; BP diastolic 55–74
[2018-07-18] MEDS: BLOOD SUGAR DIAGNOSTIC 1 EACH STRIP VI SCH ×5 (00:05→23:29)
--- NOTE | 2018-07-18 01:35 | NUR ---
PT ON CONT VLEA VENT WITH 7.5 ET/TUBE , 23CM LPILINE, WITH ANCHOR FAST IN PLACE AND SECURED, WITH CURRENT VENT SETTINGS, A/C16, VT 600ML, PEEP5, 60%, PT WITH MOSTLY CONTROLLED VENTILATION, SLIGHTLY WAKING UP AT TIMES, MOVING HANDS SLIGHTLY, WITH SLIGH GAG REFLEX, WHEN SUCTIONING, VERY LIGHT YELL TINGE SECRETIONS, CHECK CUFF, CHANGE, NEB INLINE WITH ALBUTEROL/ ATROVENT WITH 4ML MUCOMYST TOLL WELL INLINE, NO VENT CHANGES MADE AT THIS TIME, AMBU BAG AT BEDSIDE.Praveen BAEZP Addendum: 07/18/18 at 0144 by VANDANA VITALE RT Amended: Links added. Addendum: 07/18/18 at 0345 by VANDANA FERGUSON CORRECTIONS, PT ON CONT LEONARDO VENT WITH 7.5 ET T/UBE 23 LIP WITH ANCHOR FAST IN PLACE AND SECURED.Praveen VITALE RCP
[2018-07-18] MEDS: IV D5W 1000ML 1,000 ML IV PRN ×2 (03:48→17:55)
[2018-07-18] MEDS: IV NORMAL SALINE 250 ML IV PRN (03:49)
[2018-07-18 04:34] LABS: BASOPHILS # (AUTO) 0.1 K/uL (0.0-8.0); BASOPHILS % (AUTO) 1.3 % (0.0-2.0); EOSINOPHILS # (AUTO) 0.3 K/uL (0.0-0.7); EOSINOPHILS % (AUTO) 5.6 % (0.0-7.0); HEMATOCRIT 26.9 % (36.7-47.1); HEMOGLOBIN 9.2 g/dL (12.5-16.3); LYMPHOCYTES # (AUTO) 0.9 K/uL (20.0-40.0); MEAN CORPUSCULAR HEMOGLOBIN 31.9 uug (23.8-33.4); MEAN CORPUSCULAR HGB CONC 34 g/dL (32.5-36.3); MEAN CORPUSCULAR VOLUME 93.3 fL (73.0-96.2); MONOCYTES # (AUTO) 0.5 K/uL (2.0-10.0); MONOCYTES % (AUTO) 9.5 % (0.0-11.0); NEUTROPHILS # (AUTO) 3.7 K/uL (1.8-8.9); NEUTROPHILS % (AUTO) 66.6 % (38.5-71.5); PLATELET COUNT (AUTO) 60 K/uL (152-348); RED BLOOD CELL COUNT(AUTO) 2.88 MIL/uL (4.06-5.63); WHITE BLOOD COUNT (AUTO) 5.5 K/uL (3.6-10.2)
[2018-07-18 05:18] LABS: CREATININE 0.7 mg/dL (0.6-1.3); MAGNESIUM 1.6 mg/dL (1.8-2.4); PHOSPHOROUS 2.9 mg/dL (2.5-4.9); POTASSIUM 3.6 mmol/L (3.5-5.1)
[2018-07-18] MEDS: PIPERACILLIN/TAZOBACTAM/D5W 3.375 G in PREMIXED 1 EACH IV SCH ×3 (05:25→22:32)
--- NOTE | 2018-07-18 07:25 | NUR ---
Pt received in semi fowlers, on continuous mechanical ventilation via 7.5 ETT secured at 23cm lip line. Pt is on Serrano vent with ordered settings of A/C-16, VT-600, PEEP+5, FIO2-60% Tolerating vent settings well. SpO2-96% Pt is able to be aroused, and has slight gag reflex, but still unable to communicate understanding. ETT secured with AnchorFast device. Good skin integrity noted to area of application. ETT moved periodically alternating sides of mouth, per hospital policy. Oral care done. Sxn'd and lavaged as needed. Sxn'd small amounts of thick white/yellow secretions. Oral care done. HME changed. In-line nebulizer treatments administered as ordered, and tolerated well. No adverse reactions noted. Bag/valve/mask at bedside. Vent plugged into red emergency outlet. ABG drawn, results reported, no changes ordered. Will continue to monitor.
[2018-07-18] MEDS: IPRATROPIUM BROMIDE 0.5 MG/2.5 ML NEBU NEB SCH ×4 (07:30→19:17)
[2018-07-18] MEDS: ALBUTEROL SULFATE 2.5 MG/ 0.5 ML NEBU NEB SCH ×4 (07:30→19:18)
[2018-07-18] MEDS: ACETYLCYSTEINE 10% 4ML VIAL NEB SCH ×3 (07:30→19:18)
[2018-07-18] MEDS: LACTULOSE 20 G/30 ML LIQUID UDC NG SCH ×3 (08:05→17:42)
[2018-07-18] MEDS: SPIRONOLACTONE 25 MG TABLET PO SCH (08:05)
[2018-07-18] MEDS: PANTOPRAZOLE SODIUM 40 MG VIAL IV SCH ×2 (08:05→20:41)
[2018-07-18 08:36] LABS: ABG BASE EXCESS 2.2 mmol/L; ABG HCO3 26.6 mmol/L; ABG PCO2 40.3 mmHg (35.0-45.0); ABG PH 7.437 (7.350-7.450); ABG PO2 77.6 mmHg (75.0-100.0); ABG SITE LEFT RADIAL; ABG TOTAL HEMOGLOBIN 9.6 G/dL (13.5-18.0); COHb 1.1 % (0.5-1.5); MetHb 0.3 % (0.0-1.5); O2Hb 92.6 % (94.0-97.0); VENT MODE VENT - A/C; VT, ABG 600 mL
--- NOTE | 2018-07-18 09:00 | NUR ---
Patient off propofol, and awakening is slow. Did oral care and repositioned to comfort. David Gardner RN
[2018-07-18] MEDS: MAGNESIUM SULFATE/D5W 100 ML IV SCH ×2 (11:24→12:29)
--- NOTE | 2018-07-18 12:00 | NUR ---
BS 109, and no insulin necessary per sliding scale per do. Repositioned to comfort. David Gardner RN
[2018-07-18] MEDS: INSULIN REGULAR, HUMAN 300 UNIT/3 ML VIAL SQ PRN ×2 (12:08→17:56)
--- NOTE | 2018-07-18 15:00 | NUR ---
Patient given total bath, and full linen change. Did wound care to left abd, and buttocks, and three pictures documented. David Gardner RN
--- NOTE | 2018-07-18 18:00 | NUR ---
Patient off propofol all day, and is awake and alert. BS 89, and no insulin coverage needed. David Gardner RN
[2018-07-18] MEDS: FLUCONAZOLE 200 MG/NS 100ML IV 100 MG in PREMIXED 1 EACH IV SCH (18:11)
--- NOTE | 2018-07-18 19:25 | NUR ---
Patient received on Viasys Serrano settings AC 16, VT 600, PEEP +5 and FIO2-60%. No resp. distress noted. Pt to be monitored throughout the shift, PRN SX and adm'd resp neb tx's per MD orders. 7.5 ETT is patent and secure at approx. 23cm now at the center of the pt's mouth. Serrano alarm parameters have been checked and remain audible. BVM is at bedside. Addendum: 07/18/18 at 1940 by BRANDI GALVAN RT Correction - ETT has been moved to the left of the pt's mouth.
[2018-07-18] MEDS: FOLIC ACID 1 MG TABLET NG SCH (20:41)
[2018-07-18] MEDS: THIAMINE HCL 100 MG TABLET NG SCH (20:41)
[2018-07-19] VITALS (24 sets, daily range): BP systolic 91–123; BP diastolic 55–72
[2018-07-19 05:06] LABS: BASOPHILS # (AUTO) 0.1 K/uL (0.0-8.0); EOSINOPHILS # (AUTO) 0.3 K/uL (0.0-0.7); EOSINOPHILS % (AUTO) 4.4 % (0.0-7.0); HEMATOCRIT 27.9 % (36.7-47.1); HEMOGLOBIN 9.5 g/dL (12.5-16.3); LYMPHOCYTES % (AUTO) 13.4 % (20.5-51.5); MEAN CORPUSCULAR HEMOGLOBIN 32.1 uug (23.8-33.4); MEAN CORPUSCULAR HGB CONC 34 g/dL (32.5-36.3); MEAN CORPUSCULAR VOLUME 94.3 fL (73.0-96.2); MONOCYTES # (AUTO) 0.6 K/uL (2.0-10.0); MONOCYTES % (AUTO) 8.9 % (0.0-11.0); NEUTROPHILS # (AUTO) 5.3 K/uL (1.8-8.9); NEUTROPHILS % (AUTO) 72.3 % (38.5-71.5); PLATELET COUNT (AUTO) 83 K/uL (152-348); RED BLOOD CELL COUNT(AUTO) 2.96 MIL/uL (4.06-5.63); WHITE BLOOD COUNT (AUTO) 7.3 K/uL (3.6-10.2)
[2018-07-19 05:18] LABS: BILIRUBIN,TOTAL 1.2 mg/dL (0.2-1.0); CREATININE 0.7 mg/dL (0.6-1.3); MAGNESIUM 1.7 mg/dL (1.8-2.4); PHOSPHOROUS 2.7 mg/dL (2.5-4.9); POTASSIUM 3.8 mmol/L (3.5-5.1); TOTAL PROTEIN, SERUM 5.6 g/dL (6.4-8.2)
[2018-07-19] MEDS: PIPERACILLIN/TAZOBACTAM/D5W 3.375 G in PREMIXED 1 EACH IV SCH ×2 (05:19→13:18)
[2018-07-19] MEDS: IV NORMAL SALINE 250 ML IV PRN (05:23)
[2018-07-19] MEDS: BLOOD SUGAR DIAGNOSTIC 1 EACH STRIP VI SCH ×4 (05:47→23:37)
[2018-07-19] MEDS: IV D5W 1000ML 1,000 ML IV PRN ×2 (06:53→17:13)
--- NOTE | 2018-07-19 07:30 | NUR ---
SBAR report received from Nathaniel HARE, 59 yr old male was admitted on 07/04/18 for right foot cellulitis and ascites. had been orally intubated since 07/09/18. and on fio2 60%, ac 16. tv 600 peep 5. off iv sedation..reported bleeding from mouth, perhaps traumatic suctioning??abdominal distention noted with weeping fro paracentesis site. holloway catheter is oliguric. and is having diarrhea, fecal collection bag intact. ekg is sinus rhythm Addendum: 07/19/18 at 1045 by MONICO HADDAD RN Amended: Links added.
[2018-07-19] MEDS: IPRATROPIUM BROMIDE 0.5 MG/2.5 ML NEBU NEB SCH ×4 (07:48→19:09)
[2018-07-19] MEDS: ALBUTEROL SULFATE 2.5 MG/ 0.5 ML NEBU NEB SCH ×4 (07:48→19:09)
[2018-07-19] MEDS: ACETYLCYSTEINE 10% 4ML VIAL NEB SCH ×3 (07:49→23:15)
[2018-07-19 08:07] LABS: ABG BASE EXCESS 3.7 mmol/L; ABG HCO3 27.9 mmol/L; ABG PCO2 40.7 mmHg (35.0-45.0); ABG PH 7.454 (7.350-7.450); ABG SITE LEFT RADIAL; ABG TOTAL HEMOGLOBIN 9.5 G/dL (13.5-18.0); COHb 1.2 % (0.5-1.5); MetHb 0.2 % (0.0-1.5); O2Hb 93.7 % (94.0-97.0); VENT MODE VENT - A/C; VT, ABG 600 mL
[2018-07-19] MEDS ORDERED: ONDANSETRON 4 MG/2 ML VIAL IV ONE (08:45)
[2018-07-19] MEDS: SPIRONOLACTONE 25 MG TABLET PO SCH (09:41)
[2018-07-19] MEDS: PANTOPRAZOLE SODIUM 40 MG VIAL IV SCH ×2 (09:41→20:48)
[2018-07-19] MEDS: TWOCAL HN 1,000 ML LIQUID NG PRN (09:41)
[2018-07-19] MEDS: LACTULOSE 20 G/30 ML LIQUID UDC NG SCH ×3 (09:41→17:11)
--- NOTE | 2018-07-19 10:31 | NUR ---
seen by Dr Cooper. orders received.patient needing frequent suctioning. is bleeding from oral cavity. Addendum: 07/19/18 at 1031 by MONICO HADDAD RN Amended: Links added.
--- NOTE | 2018-07-19 12:35 | NUR ---
to right upper arm PICC line. also medicated for generalized discomfort and generalized nausea. Addendum: 07/19/18 at 1441 by MONICO HADDAD RN Amended: Links added.
[2018-07-19] MEDS: MAGNESIUM SULFATE/D5W 100 ML IV SCH ×2 (17:07→18:12)
[2018-07-19] MEDS: FLUCONAZOLE 200 MG/NS 100ML IV 100 MG in PREMIXED 1 EACH IV SCH (17:24)
[2018-07-19] MEDS: THIAMINE HCL 100 MG TABLET NG SCH (17:29)
[2018-07-19] MEDS: FOLIC ACID 1 MG TABLET NG SCH (17:30)
--- NOTE | 2018-07-19 17:58 | NUR ---
STABLE ON CURRENT VENTILATOR SETTINGS ALL DAY. IN LINE TREATMENTS GIVEN WITHOUT COMPLICATIONS. SUCTIONED NEEDED, ORAL CARE DONE, ONE IN THE MORNING AND ONE IN THE AFTERNOON. TITRATED FIO2 TO 50% WITH SATURATION SHOWING 93 TO 98%. NO OTHER CHANGES WAS ORDERED FOR TODAY.
[2018-07-19] MEDS ORDERED: VITAL AF 1.2 1,000 ML LIQUID GT PRN ×2 (18:00→18:34)
--- NOTE | 2018-07-19 18:05 | NUR ---
seen by dietitian. tube fdg change from 2cal HN to Vital af 1.2.accucheck 79, no insulin coverage Addendum: 07/19/18 at 1805 by MONICO HADDAD RN Amended: Links added.
--- NOTE | 2018-07-19 19:32 | NUR ---
HERMINIO report given to Sheryl RN Addendum: 07/19/18 at 1932 by MONICO HADDAD RN Amended: Links added.
--- NOTE | 2018-07-19 19:40 | NUR ---
Received pt awake, arousable to name and touch, able to follow simple commands. Cough and gag reflex present. Vent settings: AC 16, TV 600, PEEP 5, FIO2 50%. O2 sat at 99%. VSS, temp WNL. CPAP trial in AM at 0700. Continuous IVF running. Assessment completed. Aspiration precautions observed. Safety measures in place, turned and repositioned. Will continue to monitor.
--- NOTE | 2018-07-19 19:45 | NUR ---
NGtube feeding residual above 40 mL. Feeding held. Will recheck residual in an hour.
--- NOTE | 2018-07-19 19:46 | NUR ---
Flexiseal with large amount of gas in tubing and collection bag. Also, large amount of loose stool leaking around anal area. New Flexiseal inserted. Skin care provided, pt clean and dry. Dressing changed and intact. Continue to monitor.
--- NOTE | 2018-07-19 21:00 | NUR ---
Rechecked residual. No residual noted. Resumed NGtube feeding (VITAL 1.2) at 65 mL/hr as directed. Continue to monitor.
--- NOTE | 2018-07-19 21:35 | NUR ---
Pt seen and examined by attending physician, DR. RICARDO. Report given. No new orders received. Will continue to monitor and carry out plan of care.
[2018-07-19] MEDS ORDERED: ACETAMINOPHEN 650 MG/20.3 ML LIQUID UDC NG PRN (22:00)
[2018-07-20] VITALS (23 sets, daily range): BP systolic 96–125; BP diastolic 59–71
--- NOTE | 2018-07-20 02:32 | NUR ---
Patient recievecd on CMV with ordered settings of AC 16, vt 600, +5 pee, 50% fiO2. He is orally intubated with a 7.5 ETtube. MOV for cuff inflation. No SOB noted at this time. Titrated Fio2 down to 40%. Spo2 remains above 94%. RN Polly and Nupur informed. Suctioned small amounts of white yellowish secretions. No complications noted. Patient is awake and responding to yes/no questions. CPAP trial to begin in AM shift.
[2018-07-20 05:21] LABS: BASOPHILS # (AUTO) 0.1 K/uL (0.0-8.0); BASOPHILS % (AUTO) 1.1 % (0.0-2.0); EOSINOPHILS # (AUTO) 0.3 K/uL (0.0-0.7); EOSINOPHILS % (AUTO) 5.2 % (0.0-7.0); HEMATOCRIT 25.9 % (36.7-47.1); HEMOGLOBIN 8.9 g/dL (12.5-16.3); LYMPHOCYTES # (AUTO) 1.1 K/uL (20.0-40.0); LYMPHOCYTES % (AUTO) 19.6 % (20.5-51.5); MEAN CORPUSCULAR HEMOGLOBIN 32.3 uug (23.8-33.4); MEAN CORPUSCULAR HGB CONC 34 g/dL (32.5-36.3); MEAN CORPUSCULAR VOLUME 94.1 fL (73.0-96.2); MONOCYTES # (AUTO) 0.6 K/uL (2.0-10.0); MONOCYTES % (AUTO) 10.3 % (0.0-11.0); NEUTROPHILS # (AUTO) 3.7 K/uL (1.8-8.9); NEUTROPHILS % (AUTO) 63.8 % (38.5-71.5); RED BLOOD CELL COUNT(AUTO) 2.75 MIL/uL (4.06-5.63); WHITE BLOOD COUNT (AUTO) 5.8 K/uL (3.6-10.2)
[2018-07-20] MEDS: IV D5W 1000ML 1,000 ML IV PRN (05:29)
[2018-07-20] MEDS: IV NORMAL SALINE 250 ML IV PRN (05:29)
--- NOTE | 2018-07-20 05:30 | NUR ---
AM care rendered, pt tolerated well. Turned and repositioned. No respiratory distress noted. Pt stable on current vent settings. Plan for CPAP trial in AM at 0700. Hold NGtube feedings at 0600, resume at 1000. Aspiration and safety precautions observed. Will endorse accordingly to day shift nurse.
[2018-07-20] MEDS: BLOOD SUGAR DIAGNOSTIC 1 EACH STRIP VI SCH ×3 (05:31→17:03)
[2018-07-20 05:46] LABS: PLATELET COUNT (AUTO) 83 K/uL (152-348)
[2018-07-20 05:49] LABS: CARBON DIOXIDE 27 mmol/L (21-32); CHLORIDE 107 mmol/L (98-107); CREATININE 0.6 mg/dL (0.6-1.3); GLUCOSE 86 mg/dL (74-106); MAGNESIUM 1.8 mg/dL (1.8-2.4); PHOSPHOROUS 2.3 mg/dL (2.5-4.9); POTASSIUM 3.6 mmol/L (3.5-5.1); UREA NITROGEN, BLOOD 16 mg/dL (7-18)
[2018-07-20 06:07] LABS: EOSINOPHILS % (MANUAL) 6 % (0-8); LYMPHOCYTES % (MANUAL) 10 % (20-40); MONOCYTES % (MANUAL) 7 % (2-10); NEUTROPHILS % (MANUAL) 77 % (42-75)
--- NOTE | 2018-07-20 07:22 | NUR ---
All notes and documentation by Polly RN (on orientation) were under my supervision.
--- NOTE | 2018-07-20 07:31 | NUR ---
SBAR report received from Sehryl HARE, 59 yr old male was admitted on 07/04/18 for right foot cellulitis and ascites. had been orally intubated since 07/09/18. fio2 40%, ac 16. tv 600 peep 5. off iv sedation.times 24 hrs. abdominal distention noted with weeping fro paracentesis site. holloway catheter is oliguric. and is having diarrhea, fecal collection bag intact. ekg is sinus rhythm. more alert and following commands/moving all extremeties. reported gasssy from new tube feeding. this morning chest xray reported bilateral pulmonary edema. IV fluid 75ml/hr and tube fdg 65ml/hr Addendum: 07/20/18 at 0732 by MONICO HADDAD RN Amended: Links added.
[2018-07-20] MEDS: IPRATROPIUM BROMIDE 0.5 MG/2.5 ML NEBU NEB SCH ×4 (07:45→19:04)
[2018-07-20] MEDS: ALBUTEROL SULFATE 2.5 MG/ 0.5 ML NEBU NEB SCH ×4 (07:45→19:04)
[2018-07-20] MEDS: ACETYLCYSTEINE 10% 4ML VIAL NEB SCH (07:45)
--- NOTE | 2018-07-20 08:00 | NUR ---
per RT, abgs drawn on cpap) and psv8 with fio2 40% Addendum: 07/20/18 at 0800 by MONICO HADDAD RN Amended: Links added.
[2018-07-20 08:10] LABS: ABG BASE EXCESS 1.9 mmol/L; ABG HCO3 25.9 mmol/L; ABG PH 7.451 (7.350-7.450); ABG SITE LEFT RADIAL; ABG TOTAL HEMOGLOBIN 9.6 G/dL (13.5-18.0); COHb 1.7 % (0.5-1.5); CPAP,BG 0 cmH20; MetHb 0.2 % (0.0-1.5); O2Hb 92.1 % (94.0-97.0); VENT MODE VENT - CPAP
[2018-07-20] MEDS: LACTULOSE 20 G/30 ML LIQUID UDC NG SCH ×2 (08:24→16:41)
[2018-07-20] MEDS: PANTOPRAZOLE SODIUM 40 MG VIAL IV SCH ×2 (08:24→21:00)
[2018-07-20] MEDS: SPIRONOLACTONE 25 MG TABLET PO SCH (08:24)
--- NOTE | 2018-07-20 08:49 | NUR ---
seen by Loli CARMEN. condition report given. new orders received Addendum: 07/20/18 at 0849 by MONICO HADDAD RN Amended: Links added.
[2018-07-20] MEDS ORDERED: FUROSEMIDE 40 MG/4 ML VIAL IV ONE (09:45)
[2018-07-20] MEDS ORDERED: POTASSIUM CHLORIDE 20 MEQ POWDER PACKET GT ONE (09:45)
[2018-07-20] MEDS ORDERED: DC PROPOFOL ONCE EXTUBATED XX PRN (09:50)
--- NOTE | 2018-07-20 10:05 | NUR ---
RECEIVED PT STABLE ON CURRENT VENTILATOR SETTINGS. PLACED ON CPAP OF 0 WITH PSV 8 AT 0700 AND BLOOD GAS WAS ORDERED FOR 0800. AT O800 BLOOD GAS WAS DONE AND RESULTS WERE HANDED TO MONICO HADDAD RN. EXTUBATED PT AT [address] TREVIZO'S ORDER. PT WAS PLACED ON 5 PHOTO PRINT SPECIALIST NC WITH PT SATURATING 89-93%. WILL MONITOR PT FOR FURTHER DEVELOPMENT.
[2018-07-20] MEDS: POTASSIUM PHOSPHATE MM 7.5 MMOL in IV DEXTROSE 5% 100 ML IV SCH ×2 (10:07→12:47)
--- NOTE | 2018-07-20 10:27 | NUR ---
seen by Dr Cooper, patient is extubated to 5 liters nasal cannula. patient needed to be suctione orally frequently. has good cough and gag reflex but is weak. unable to tell who he is and is garbles, mogerardo a lot.. d5w dcd as ordered. xavier chappell and remy brian, lasis given as well Addendum: 07/20/18 at 1027 by MONICO HADDAD RN Amended: Links added.
--- NOTE | 2018-07-20 12:41 | NUR ---
accedinson 88, no insulin coverage Addendum: 07/20/18 at 1241 by MONICO HADDAD RN Amended: Links added.
--- NOTE | 2018-07-20 14:25 | NUR ---
patient was able to say his name as KIRSTEN GARIBAY, but unable to say his birthdate and addresss. admitting deprtment informed to update medical records. Addendum: 07/20/18 at 1425 by MONICO HADDAD RN Amended: Links added.
--- NOTE | 2018-07-20 16:27 | NUR ---
call to NELLA lawson ngt out and rectal tube came out too. patient is more active.. orders received. place patient on IV NS 70ml/hr, ok to keep ngt and rectal tube out. Addendum: 07/20/18 at 1630 by MONICO HADDAD RN Amended: Links added.
[2018-07-20] MEDS: FOLIC ACID 1 MG TABLET NG SCH (16:41)
[2018-07-20] MEDS: THIAMINE HCL 100 MG TABLET NG SCH (16:42)
[2018-07-20] MEDS: FLUCONAZOLE 200 MG/NS 100ML IV 100 MG in PREMIXED 1 EACH IV SCH (16:43)
[2018-07-20] MEDS: IV NS 1000 ML 1,000 ML IV PRN (17:06)
--- NOTE | 2018-07-20 19:30 | NUR ---
Report received. Patient S/P extubation today, on 5 L NC sat above 90%. NAD noted. Coughing non productively. Suctioned orally for small white, beige secretions. Patient gets mildly agitated with suctioning. Oriented to name only. Follows simple commands; neck pinner weak. Speech somewhat garbled, some words understandable. Assessment completed. Addendum: 07/20/18 at 2132 by SHELIA GUTIERREZ RN Amended: Links added. Addendum: 07/20/18 at 2132 by SHELIA GUTIERREZ RN Amended: Links added.
[2018-07-21] VITALS (18 sets, daily range): BP systolic 89–131; BP diastolic 54–93
[2018-07-21] MEDS: Z GUARD REMEDY PASTE 57 GM TUBE TOP PRN (00:06)
[2018-07-21] MEDS: BLOOD SUGAR DIAGNOSTIC 1 EACH STRIP VI SCH ×5 (00:06→20:21)
[2018-07-21 05:06] LABS: BASOPHILS # (AUTO) 0.1 K/uL (0.0-8.0); BASOPHILS % (AUTO) 1.2 % (0.0-2.0); EOSINOPHILS # (AUTO) 0.2 K/uL (0.0-0.7); EOSINOPHILS % (AUTO) 3.8 % (0.0-7.0); HEMATOCRIT 27.5 % (36.7-47.1); HEMOGLOBIN 9.4 g/dL (12.5-16.3); LYMPHOCYTES # (AUTO) 0.9 K/uL (20.0-40.0); MEAN CORPUSCULAR HEMOGLOBIN 32.7 uug (23.8-33.4); MEAN CORPUSCULAR HGB CONC 34 g/dL (32.5-36.3); MEAN CORPUSCULAR VOLUME 95.4 fL (73.0-96.2); MONOCYTES # (AUTO) 0.4 K/uL (2.0-10.0); MONOCYTES % (AUTO) 8.1 % (0.0-11.0); NEUTROPHILS # (AUTO) 3.9 K/uL (1.8-8.9); NEUTROPHILS % (AUTO) 70.9 % (38.5-71.5); PLATELET COUNT (AUTO) 87 K/uL (152-348); RED BLOOD CELL COUNT(AUTO) 2.88 MIL/uL (4.06-5.63); WHITE BLOOD COUNT (AUTO) 5.6 K/uL (3.6-10.2)
[2018-07-21 05:12] LABS: CARBON DIOXIDE 28 mmol/L (21-32); CHLORIDE 105 mmol/L (98-107); CREATININE 0.6 mg/dL (0.6-1.3); GLUCOSE 74 mg/dL (74-106); MAGNESIUM 1.6 mg/dL (1.8-2.4); PHOSPHOROUS 3.2 mg/dL (2.5-4.9); POTASSIUM 3.8 mmol/L (3.5-5.1); UREA NITROGEN, BLOOD 15 mg/dL (7-18)
[2018-07-21] MEDS: IV NS 1000 ML 1,000 ML IV PRN (05:22)
--- NOTE | 2018-07-21 05:26 | NUR ---
No neuro changes. stable on 5 L NC O2 post extubation. Sat above 90%. Accuchecks 65-70. Main IVF NS at 70 ml/H. Will endorsed to am shift.
[2018-07-21] MEDS: ALBUTEROL SULFATE 2.5 MG/ 0.5 ML NEBU NEB SCH ×4 (07:00→19:38)
[2018-07-21] MEDS: IPRATROPIUM BROMIDE 0.5 MG/2.5 ML NEBU NEB SCH ×4 (07:00→19:38)
[2018-07-21 08:08] LABS: ABG BASE EXCESS 0.6 mmol/L; ABG HCO3 24.9 mmol/L; ABG PCO2 38.6 mmHg (35.0-45.0); ABG PH 7.427 (7.350-7.450); ABG PO2 60.7 mmHg (75.0-100.0); ABG SITE LEFT RADIAL; ABG TOTAL HEMOGLOBIN 9.9 G/dL (13.5-18.0); COHb 1.9 % (0.5-1.5); MetHb 0.3 % (0.0-1.5); O2Hb 86.6 % (94.0-97.0); VENT MODE Nasal Cannula
[2018-07-21] MEDS: SPIRONOLACTONE 25 MG TABLET PO SCH (08:16)
[2018-07-21] MEDS: PANTOPRAZOLE SODIUM 40 MG VIAL IV SCH ×2 (08:16→20:22)
[2018-07-21] MEDS: LACTULOSE 20 G/30 ML LIQUID UDC NG SCH ×3 (08:25→17:27)
--- NOTE | 2018-07-21 09:09 | NUR ---
Johnathan Fernando SALES VICE PRESIDENT in the unit to see patient will wait to transfer until pulmonary clears. swallow eval done. patient will be on aspiration precautions puree diet and thickened liquids.
[2018-07-21] MEDS ORDERED: MAGNESIUM OXIDE 400 MG TABLET PO ONE (10:15)
--- NOTE | 2018-07-21 11:09 | NUR ---
ECHO DONE AT BEDSIDE. RESULTS IN CHART. MODERATE PERICARDITIS AND MODERATE TO LARGE PLEURAL EFFUSION. EF 55-60%
--- NOTE | 2018-07-21 12:21 | NUR ---
BS 65 GIVEN PUDDING WILL RETAKE BLOOD SUGAR IN 15 MINUTES
--- NOTE | 2018-07-21 15:15 | NUR ---
DOCTOR TREVIZO IN THE UNIT. PATIENT MAY DOWNGRADE TO TELE. PULMONARY HAS CLEARED FOR TRANSFER.
--- NOTE | 2018-07-21 15:46 | NUR ---
PATIENT WILL BE GOING TO ROOM 317. REPORT GIVEN TO MARYAM HARE.
[2018-07-21] MEDS ORDERED: INSULIN REGULAR, HUMAN 300 UNIT/3 ML VIAL SQ PRN (16:30)
[2018-07-21] MEDS ORDERED: DEXTROSE 50% 50 ML DISP.SYRIN IV PRN (16:30)
--- NOTE | 2018-07-21 16:30 | NUR ---
BED CHANGED TO ROOM 312.
[2018-07-21] MEDS: FLUCONAZOLE 200 MG/NS 100ML IV 100 MG in PREMIXED 1 EACH IV SCH (17:27)
[2018-07-21] MEDS: IV NORMAL SALINE 250 ML IV PRN (17:35)
[2018-07-21] MEDS: FOLIC ACID 1 MG TABLET NG SCH (18:53)
[2018-07-21] MEDS: THIAMINE HCL 100 MG TABLET NG SCH (18:53)
--- NOTE | 2018-07-22 02:30 | NUR ---
Patient try to get out of bed, very agitated and restless. patient redirected and positioned and turn. Patient stated "where is my ex ." after redirecting patient and reorienting, patient fell asleep. will continue to monitor.
[2018-07-22 03:46] VITALS: BP 122/74
--- NOTE | 2018-07-22 05:51 | NUR ---
patient slept intermittently through out the night. patient is agitated, restless and confuses. patient is alert and oriented x1 and garbles in speech. Patient vital signs are within normal limits and is in stable condition. will continue to monitor and endorse plan of care to oncoming shift nurse.
[2018-07-22] MEDS: BLOOD SUGAR DIAGNOSTIC 1 EACH STRIP VI SCH ×4 (06:35→20:21)
--- NOTE | 2018-07-22 06:37 | NUR ---
patient BS was 59. Gave patient two cups or orange juice. Patient is asymptomatic. will continue to monitor and re-check bs.
[2018-07-22 06:41] LABS: BASOPHILS # (AUTO) 0.1 K/uL (0.0-8.0); BASOPHILS % (AUTO) 1.4 % (0.0-2.0); EOSINOPHILS # (AUTO) 0.2 K/uL (0.0-0.7); EOSINOPHILS % (AUTO) 4.5 % (0.0-7.0); HEMATOCRIT 30.1 % (36.7-47.1); HEMOGLOBIN 10.5 g/dL (12.5-16.3); LYMPHOCYTES % (AUTO) 20.1 % (20.5-51.5); MEAN CORPUSCULAR HEMOGLOBIN 32.7 uug (23.8-33.4); MEAN CORPUSCULAR HGB CONC 35 g/dL (32.5-36.3); MEAN CORPUSCULAR VOLUME 93.8 fL (73.0-96.2); MONOCYTES # (AUTO) 0.6 K/uL (2.0-10.0); MONOCYTES % (AUTO) 11.8 % (0.0-11.0); NEUTROPHILS # (AUTO) 3.2 K/uL (1.8-8.9); NEUTROPHILS % (AUTO) 62.2 % (38.5-71.5); PLATELET COUNT (AUTO) 107 K/uL (152-348); RED BLOOD CELL COUNT(AUTO) 3.21 MIL/uL (4.06-5.63); WHITE BLOOD COUNT (AUTO) 5.1 K/uL (3.6-10.2)
[2018-07-22 06:45] LABS: CARBON DIOXIDE 27 mmol/L (21-32); CHLORIDE 109 mmol/L (98-107); CREATININE 0.6 mg/dL (0.6-1.3); GLUCOSE 71 mg/dL (74-106); POTASSIUM 4.1 mmol/L (3.5-5.1); UREA NITROGEN, BLOOD 16 mg/dL (7-18)
--- NOTE | 2018-07-22 07:00 | NUR ---
Fall and safety precautions observed and aspiration precautions maintained throughout the shift. Nursing comfort measures ensured.
[2018-07-22] MEDS: IPRATROPIUM BROMIDE 0.5 MG/2.5 ML NEBU NEB SCH ×4 (07:37→19:17)
[2018-07-22] MEDS: ALBUTEROL SULFATE 2.5 MG/ 0.5 ML NEBU NEB SCH ×4 (07:37→19:17)
[2018-07-22] MEDS ORDERED: FOLIC ACID 1 MG TABLET PO SCH (07:56)
[2018-07-22] MEDS ORDERED: THIAMINE HCL 100 MG TABLET PO SCH (07:57)
[2018-07-22] MEDS ORDERED: ACETAMINOPHEN 325 MG TABLET PO PRN (08:00)
[2018-07-22] MEDS: LACTULOSE 20 G/30 ML LIQUID UDC PO SCH ×2 (09:00→17:00)
[2018-07-22] MEDS: PANTOPRAZOLE SODIUM 40 MG VIAL IV SCH ×2 (09:07→21:36)
[2018-07-22] MEDS: SPIRONOLACTONE 25 MG TABLET PO SCH (09:07)
--- NOTE | 2018-07-22 09:22 | NUR ---
Held AM dose of lactulose due to patient having 3 loose bowel movements overnight.
[2018-07-22 11:12] VITALS: BP 136/75
--- NOTE | 2018-07-22 11:38 | NUR ---
Called infection control, confirmed it is not necessary to send stool for testing. Patient is on lactulose which is making the bowel loose. Addendum: 07/22/18 at 1139 by KINGS VEGA RN Amended: Links added.
[2018-07-22 11:47] LABS: ABG BASE EXCESS 2.5 mmol/L; ABG HCO3 26.8 mmol/L; ABG PCO2 40.4 mmHg (35.0-45.0); ABG PO2 74.1 mmHg (75.0-100.0); ABG SITE LEFT BRACHIAL; ABG TOTAL HEMOGLOBIN 10.1 G/dL (13.5-18.0); COHb 1.2 % (0.5-1.5); MetHb 0.1 % (0.0-1.5); O2Hb 92.4 % (94.0-97.0)
[2018-07-22] MEDS ORDERED: MISCELLANEOUS MED XX ONE (13:45)
[2018-07-22] MEDS ORDERED: ALBUMIN HUMAN IV SCH (13:45)
[2018-07-22] MEDS ORDERED: PREMIXED IV SCH (13:45)
[2018-07-22 15:04] VITALS: BP 102/47
[2018-07-22] MEDS: ALBUMIN HUMAN 25% 50 ML IV SCH ×4 (16:00→21:44)
--- NOTE | 2018-07-22 17:00 | NUR ---
PM dose of Lactulose not given due to 4 instances of loose bowel movements this shift.
--- NOTE | 2018-07-22 18:43 | NUR ---
Patient rested comfortably throughout shift. Bedside paracentesis performed with 8.25L removed. Telemonitor is sinus with PVCs. VS wnl and patient is stable. Left upper arm central line patent and intact. Aspiration and fall safety precautions in place. Bed locked with side rails up and locked. Wound care performed as ordered and tolerated well. O2 running at 6L/min via face mask with saturation at 97%.
--- NOTE | 2018-07-22 19:30 | NUR ---
Received Patient laying in bed. He is noted awake a/o x 1 Will round frequently for safety and assess patient needs. Fall and aspiration precautions implemented. Bed alarm is on. Bed is in low position with wheels locked with call light in reach. Patient is on Face mask at 6L O2. pt in no distress. Patient on a pureed diet. will continue to monitor.
[2018-07-22 22:18] VITALS: BP 125/64
[2018-07-23] MEDS: ONDANSETRON 4 MG/2 ML VIAL IV PRN (00:47)
[2018-07-23 04:56] VITALS: BP 110/65
[2018-07-23 06:36] LABS: BASOPHILS # (AUTO) 0.1 K/uL (0.0-8.0); BASOPHILS % (AUTO) 1.6 % (0.0-2.0); EOSINOPHILS # (AUTO) 0.2 K/uL (0.0-0.7); HEMATOCRIT 24.4 % (36.7-47.1); HEMOGLOBIN 8.4 g/dL (12.5-16.3); LYMPHOCYTES # (AUTO) 0.9 K/uL (20.0-40.0); LYMPHOCYTES % (AUTO) 22.3 % (20.5-51.5); MEAN CORPUSCULAR HEMOGLOBIN 32.6 uug (23.8-33.4); MEAN CORPUSCULAR HGB CONC 34 g/dL (32.5-36.3); MEAN CORPUSCULAR VOLUME 94.9 fL (73.0-96.2); MONOCYTES # (AUTO) 0.4 K/uL (2.0-10.0); NEUTROPHILS # (AUTO) 2.4 K/uL (1.8-8.9); NEUTROPHILS % (AUTO) 60.1 % (38.5-71.5); PLATELET COUNT (AUTO) 78 K/uL (152-348); RED BLOOD CELL COUNT(AUTO) 2.57 MIL/uL (4.06-5.63)
[2018-07-23 06:48] LABS: CARBON DIOXIDE 28 mmol/L (21-32); CHLORIDE 109 mmol/L (98-107); CREATININE 0.6 mg/dL (0.6-1.3); GLUCOSE 74 mg/dL (74-106); MAGNESIUM 1.5 mg/dL (1.8-2.4); PHOSPHOROUS 3.2 mg/dL (2.5-4.9); POTASSIUM 3.9 mmol/L (3.5-5.1); UREA NITROGEN, BLOOD 12 mg/dL (7-18)
--- NOTE | 2018-07-23 07:00 | NUR ---
Received report from PM nurse, Patient awake and alert/oriented x1 in bed. No complaints of pain or discomfort. Safety measures in place. Bed locked in low position. Seizure and fall precautions in place. VS WNL and patient is stable. Call light within reach at all times. Will continue to monitor.
[2018-07-23] MEDS: BLOOD SUGAR DIAGNOSTIC 1 EACH STRIP VI SCH ×3 (07:09→12:20)
[2018-07-23] MEDS: ALBUTEROL SULFATE 2.5 MG/ 0.5 ML NEBU NEB SCH ×3 (08:08→16:08)
[2018-07-23] MEDS: IPRATROPIUM BROMIDE 0.5 MG/2.5 ML NEBU NEB SCH ×3 (08:08→16:08)
[2018-07-23] MEDS: PANTOPRAZOLE SODIUM 40 MG VIAL IV SCH (10:03)
[2018-07-23] MEDS: SPIRONOLACTONE 25 MG TABLET PO SCH (10:03)
[2018-07-23] MEDS: LACTULOSE 20 G/30 ML LIQUID UDC PO SCH (10:03)
[2018-07-23 12:00] VITALS: BP 102/66
[2018-07-23] MEDS: MAGNESIUM SULFATE/D5W 100 ML IV SCH ×2 (12:17→13:36)
[2018-07-23 13:39] LABS: ABG BASE EXCESS 1.1 mmol/L; ABG HCO3 25.5 mmol/L; ABG PCO2 40.1 mmHg (35.0-45.0); ABG PH 7.422 (7.350-7.450); ABG SITE RIGHT RADIAL; ABG TOTAL HEMOGLOBIN 9.8 G/dL (13.5-18.0); COHb 0.9 % (0.5-1.5); MetHb 0.3 % (0.0-1.5); O2Hb 92.2 % (94.0-97.0)
[2018-07-23] MEDS ORDERED: ALBU2.5V13 NEB (14:14)
[2018-07-23] MEDS ORDERED: FOLI1TAB16 PO (14:14)
[2018-07-23] MEDS ORDERED: IPRA0.2S6 NEB (14:15)
[2018-07-23] MEDS ORDERED: LACT10SO7 PO (14:15)
[2018-07-23] MEDS ORDERED: PANT40TA2 PO (14:15)
[2018-07-23] MEDS ORDERED: SPIR50TA PO (14:15)
[2018-07-23] MEDS ORDERED: THIA100T13 PO (14:15)
--- NOTE | 2018-07-23 17:00 | NUR ---
Picc line removed, pictures taken, discharge instructions given, and report called to [facility]. Patient in no distress at the time of discharge, all needs met. Patient transported with insurance provided transport. Transport team informed of the need for 4L oxygen during transport.
[2018-07-24] MEDS ORDERED: SPIRONOLACTONE 50 MG TABLET PO SCH (09:00)
[2018-07-24] MEDS ORDERED: SPIRONOLACTONE 25 MG TABLET PO SCH (09:00)
== END 2018-07-23 17:15 | DRG 207 ==
LOC: ER 17:32 → EDBD 22:01 → MERGE 22:01 → TELE3 22:01 → MEDSURG3 07-05 17:25 → TELE3 07-08 16:42 → CCU 07-09 15:49 → TELE3 07-21 16:38 → MEDSURG3 07-23 13:45
PROVIDERS: ADMIT Hospitalist; ATTEND Hospitalist
PROC: 0D9670Z Drainage of Stomach with Drainage Device, Via Natural or Artificial Opening (ICD-10-PCS; 2018-07-07)
PROC: 30233R1 Transfusion of Nonautologous Platelets into Peripheral Vein, Percutaneous Approach (ICD-10-PCS; 2018-07-09)
PROC: 5A1955Z Respiratory Ventilation, Greater than 96 Consecutive Hours (ICD-10-PCS; principal; 2018-07-10)
PROC: 0BH17EZ Insertion of Endotracheal Airway into Trachea, Via Natural or Artificial Opening (ICD-10-PCS; 2018-07-10)
PROC: 05HY33Z Insertion of Infusion Device into Upper Vein, Percutaneous Approach (ICD-10-PCS; 2018-07-10)
PROC: 0W9G3ZX Drainage of Peritoneal Cavity, Percutaneous Approach, Diagnostic (ICD-10-PCS; 2018-07-12)
PROC: 02HV33Z Insertion of Infusion Device into Superior Vena Cava, Percutaneous Approach (ICD-10-PCS; 2018-07-13)
PROC: 0W9G3ZZ Drainage of Peritoneal Cavity, Percutaneous Approach (ICD-10-PCS; 2018-07-22)
DX: J69.0 Pneumonitis due to inhalation of food and vomit (principal); G93.41 Metabolic encephalopathy; J96.01 Acute respiratory failure with hypoxia; K65.2 Spontaneous bacterial peritonitis; E43 Unspecified severe protein-calorie malnutrition; I85.11 Secondary esophageal varices with bleeding; L03.116 Cellulitis of left lower limb; L03.115 Cellulitis of right lower limb; F10.239 Alcohol dependence with withdrawal, unspecified; K76.6 Portal hypertension; J98.11 Atelectasis; N39.0 Urinary tract infection, site not specified; D68.4 Acquired coagulation factor deficiency; J90 Pleural effusion, not elsewhere classified; E87.0 Hyperosmolality and hypernatremia; E87.2 Acidosis; B37.49 Other urogenital candidiasis; K70.40 Alcoholic hepatic failure without coma; Z68.30 Body mass index [BMI] 30.0-30.9, adult; K70.31 Alcoholic cirrhosis of liver with ascites; B19.20 Unspecified viral hepatitis C without hepatic coma; Y90.0 Blood alcohol level of less than 20 mg/100 ml; S90.921A Unspecified superficial injury of right foot, initial encounter; X58.XXXA Exposure to other specified factors, initial encounter; Y92.89 Other specified places as the place of occurrence of the external cause; N49.2 Inflammatory disorders of scrotum; N43.3 Hydrocele, unspecified; E66.9 Obesity, unspecified; E87.6 Hypokalemia; K40.20 Bilateral inguinal hernia, without obstruction or gangrene, not specified as recurrent; Z59.0 Homelessness; K80.20 Calculus of gallbladder without cholecystitis without obstruction; E87.70 Fluid overload, unspecified; B96.20 Unspecified Escherichia coli [E. coli] as the cause of diseases classified elsewhere; F15.10 Other stimulant abuse, uncomplicated; F12.10 Cannabis abuse, uncomplicated; M50.31 Other cervical disc degeneration, high cervical region; R16.1 Splenomegaly, not elsewhere classified; B96.4 Proteus (mirabilis) (morganii) as the cause of diseases classified elsewhere; B95.61 Methicillin susceptible Staphylococcus aureus infection as the cause of diseases classified elsewhere; D69.6 Thrombocytopenia, unspecified; R91.1 Solitary pulmonary nodule; R60.1 Generalized edema; I11.9 Hypertensive heart disease without heart failure; D69.59 Other secondary thrombocytopenia; E03.9 Hypothyroidism, unspecified; D63.8 Anemia in other chronic diseases classified elsewhere; L89.159 Pressure ulcer of sacral region, unspecified stage; L89.899 Pressure ulcer of other site, unspecified stage
CPT/HCPCS: 36415; 36569; 36600; 70030-TC; 70450; 71045; 72125; 73630; 74018; 76870; 80307; 83605; 83690; 83735; 84100; 84443; 84478; 85025; 85610; 85730; 86705; 86706; 86803; 86850; 86900; 86901; 87040; 87070; 87077; 87086; 87205; 92526; 92610; 93005; 93307; 94002; 94003; 94640; 94664; 97110; 97112; 97530; A4217; A4663; C1758; C9113; G0378; G0480; G0480-TC; J0696; J1450; J1815; J1940; J2060; J2185; J2354; J2405; J2543; J3370; J3411; J3475; J3480; J3490; J3590; J7030; J7040; J7042; J7050; J7060; J7070; P9021; P9035-BL; P9047